=== PATIENT | male | born 1950 | race Caucasian/White ===

== ENCOUNTER 2017-11-22 15:52 | Inpatient (IN) | payer MEDICARE ==
[~2017-11-22] VITALS: Ht 188 cm; Wt 81.6 kg
--- NOTE | ~2017-11-22 | EC ---
PATIENT:ALDEN MARQUIS DATE OF SERVICE: 11/22/17 SEX: M MEDICAL RECORD: [id number] DATE OF : [birth year] LOCATION:D.[facility] [place] AGE OF PATIENT: 66 ADMISSION DATE: 11/22/17 REFERRING PHYSICIAN: INTERPRETING PHYSICIAN: JACE BEY MD ECHOCARDIOGRAM REPORT ECHO CHARGES 4 ECHO COMPLETE CLINICAL DIAGNOSIS: ASSESS EF/ LEFT KNEE INFECTION HX OF DM ECHOCARDIOGRAPHIC MEASUREMENTS (adult normal given) AC root (d.<3.7cm) 4.3 cm LV Septum d (<1.2 cm> 2.2 cm Valve Excursion 2.4 cm LV Septum (systole) 2.6 cm Left Atria (s.<4.0cm> 5.3 cm LVPW d(<1.2cm) 2.3 cm RV (d.<2.3cm) 3.7 cm LVPW (sytole) 2.8 cm LV diastole(<5.6CM) 5.0 cm MV E-F(>70mm/sec) cm LV systole 2.8 cm LVOT Diameter 2.3 cm MV exc.(>10mm) 2.1 cm Est.ejection fraction (50-75%) % Pericardial Effusion Y DOPPLER: LVIT cm/sec A 79.0 cm/sec E 91.0 cm/sec LA cm/sec RVSP 21 mmHg LVOT 112 cm/sec AOP1/2T 501 m/s Asc. Ao 158 cm/sec RVOT 95 cm/sec RA cm/sec PA 125 cm/sec AV Gradient Peak 9.95 mmHg AV Mean 4.87 mmHg AV Area 2.1 cm MV Gradient Peak 4.30 mmHg MV Mean 2.21 mmHg MV Area cm COMMENTS: Racing Secretary: Virgen STRICKLAND Ribbon Inker: 1 Dr. Bey TAPE# PACS DATE OF SERVICE: 11/24/2017 FINDINGS: 1. Left ventricle chamber size is within normal limits. Left ventricular systolic function is normal. Overall ejection fraction is estimated at 55%. 2. Left atrium is enlarged at 5.3 cm. Right atrium and right ventricle chamber sizes are as well mildly dilated. 3. Left ventricular hypertrophy is present, concentric, with no evidence of outflow tract hypertrophy, but there is reversal of the mitral inflow pattern, suggestive of diastolic dysfunction from this degree of left ventricular ECHOCARDIOGRAM REPORT [id number] KANDIS,ALDEN A hypertrophy. 4. Valvular structures have normal structure and motion. 5. Doppler interrogation reveals mild aortic insufficiency, mild mitral regurgitation, mild tricuspid regurgitation. No other valvular insufficiency or stenosis. Pulmonary systolic pressure is normal, estimated at 21 mmHg. 6. No evidence of pericardial effusion or left ventricular thrombus. TRANSINT:[id number] Voice Confirmation ID: [id number] DOCUMENT ID: [id number] JACE BEY MD at 1025 CC: [id number] DICTATION DATE: 11/25/17 1116 METAL SPRAYING MACHINE OPERATOR: 11/25/17 1346 ADM IN [facility] [address] [id number]
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
[~2017-11-22 15:52] MED LIST: CINNAMON500 MG PO; GABAPENTIN100 MG PO; GLUCOPHAGE1000 MG PO; HUMULIN N100 U/ML; HUMULIN R100 U/ML SC; LANTUS SOL100 UNIT/1 SC; LIPITOR40 MG PO; LISINOPRIL2.5 MG PO; MULTI-DAY VITAM1 TAB; VITAMIN C1000 MG PO
[2017-11-22 16:51] LABS: BASOPHILS 0.1 % (0-2); EOSINOPHILS 0.7 % (0-7); HEMATOCRIT 27.7 % (42.0-54.0); HEMOGLOBIN 8.8 g/dL (13.5-17.5); IMMATURE GRANULOCYTES 1.6 % (0-5); LYMPHOCYTES 6.2 % (15-50); MCH 26.4 pg (26.0-34.0); MCHC 31.8 g/dL (31.0-37.0); MCV 83.2 fL (80.0-100.0); MEAN PLATELET VOLUME 8.4 fL (7.4-10.4); MONOCYTES 4.7 % (2-11); NEUTROPHILS 86.7 % (40-80); RBC 3.33 10x6/uL (4.20-6.10); RDW 13.9 % (11.5-14.5); WBC 15.8 10x3/uL (4.8-10.8)
[2017-11-22 16:52] LABS: PLATELET COUNT 487 10x3/uL (130-400)
[2017-11-22 17:21] LABS: ALBUMIN 1.1 g/dL (3.4-5.0); BILIRUBIN - TOTAL 0.3 mg/dL (0.2-1.3); CARBON DIOXIDE 21.4 mmol/L (21.0-32.0); CREATININE - SERUM 1.3 mg/dL (0.6-1.3); POTASSIUM - SERUM 4.4 mmol/L (3.5-5.1)
[2017-11-22] MEDS ORDERED: NEURONTIN600 MG PO (22:39)
[2017-11-22] MEDS ORDERED: TOUJEO SOL300 UNIT/1 SC (22:41)
[2017-11-22 23:00] VITALS: BP 164/91; BMI 23.1
[2017-11-23] VITALS: BP 136/77
[2017-11-23 04:00] VITALS: BP 129/74
[2017-11-23 07:54] VITALS: BP 131/74
[2017-11-23 12:05] VITALS: BP 142/75
[2017-11-23 12:15] VITALS: BMI 23.1
[2017-11-23 19:23] VITALS: BP 110/68
[2017-11-23 21:04] LABS: % SATURATION 28 % (15-55); IRON 35 ug/dl (35-150); TOTAL IRON BIND CAPACITY 125 ug/dl (260-445); UNSAT IRON BIND CAPACITY 90 ug/dl (150-375)
[2017-11-24 05:16] LABS: BASOPHILS 0.1 % (0-2); EOSINOPHILS 1.7 % (0-7); HEMATOCRIT 24.2 % (42.0-54.0); HEMOGLOBIN 7.6 g/dL (13.5-17.5); IMMATURE GRANULOCYTES 1.2 % (0-5); LYMPHOCYTES 8.5 % (15-50); MCH 26.4 pg (26.0-34.0); MCHC 31.4 g/dL (31.0-37.0); MEAN PLATELET VOLUME 8.5 fL (7.4-10.4); MONOCYTES 4.8 % (2-11); NEUTROPHILS 83.7 % (40-80); PLATELET COUNT 440 10x3/uL (130-400); RBC 2.88 10x6/uL (4.20-6.10); RDW 13.9 % (11.5-14.5); WBC 14.9 10x3/uL (4.8-10.8)
[2017-11-24 05:35] LABS: CALCIUM 7.8 mg/dL (8.5-10.1); CARBON DIOXIDE 26.5 mmol/L (21.0-32.0); CREATININE - SERUM 1.2 mg/dL (0.6-1.3)
[2017-11-24 05:36] LABS: POTASSIUM - SERUM 3.5 mmol/L (3.5-5.1)
[2017-11-24 05:56] LABS: HEMOGLOBIN A1C > 16 % (4.8-6.0); MEAN PLASMA GLUCOSE 413 MG/DL (74-154)
[2017-11-24 08:16] VITALS: BP 111/60
[2017-11-24 12:22] VITALS: BP 132/62
[2017-11-24 16:13] VITALS: BP 105/64
[2017-11-24 20:00] VITALS: BP 118/64
[2017-11-24 23:53] VITALS: BP 123/67
[2017-11-25 04:00] VITALS: BP 115/65
[2017-11-25 05:41] LABS: BASOPHILS 0.1 % (0-2); EOSINOPHILS 2.2 % (0-7); IMMATURE GRANULOCYTES 0.6 % (0-5); LYMPHOCYTES 9.5 % (15-50); MCH 26.1 pg (26.0-34.0); MCHC 31.6 g/dL (31.0-37.0); MCV 82.4 fL (80.0-100.0); MEAN PLATELET VOLUME 8.3 fL (7.4-10.4); MONOCYTES 5.6 % (2-11); RBC 2.38 10x6/uL (4.20-6.10); RDW 14.3 % (11.5-14.5); WBC 11.3 10x3/uL (4.8-10.8)
[2017-11-25 05:42] LABS: HEMATOCRIT 19.6 % (42.0-54.0); HEMOGLOBIN 6.2 g/dL (13.5-17.5); PLATELET COUNT 347 10x3/uL (130-400)
[2017-11-25 05:46] LABS: ANION GAP 10.2 mmol/L (8-16); CALCIUM 7.4 mg/dL (8.5-10.1); CARBON DIOXIDE 24.8 mmol/L (21.0-32.0); CREATININE - SERUM 1.5 mg/dL (0.6-1.3)
[2017-11-25 08:18] VITALS: BP 127/78
[2017-11-25 12:18] VITALS: BP 121/58
[2017-11-25 15:29] VITALS: BP 105/61
[2017-11-25 21:31] VITALS: BP 106/64
[2017-11-26 01:38] VITALS: BP 106/59
[2017-11-26 05:05] LABS: BASOPHILS 0.1 % (0-2); EOSINOPHILS 2.3 % (0-7); IMMATURE GRANULOCYTES 0.6 % (0-5); LYMPHOCYTES 10.2 % (15-50); MCH 26.1 pg (26.0-34.0); MCHC 31.6 g/dL (31.0-37.0); MCV 82.7 fL (80.0-100.0); MEAN PLATELET VOLUME 8.5 fL (7.4-10.4); MONOCYTES 7.9 % (2-11); NEUTROPHILS 78.9 % (40-80); PLATELET COUNT 315 10x3/uL (130-400); RBC 2.26 10x6/uL (4.20-6.10); RDW 14.5 % (11.5-14.5); WBC 9.9 10x3/uL (4.8-10.8)
[2017-11-26 05:15] LABS: HEMATOCRIT 18.7 % (42.0-54.0); HEMOGLOBIN 5.9 g/dL (13.5-17.5)
[2017-11-26 05:19] LABS: CALCIUM 7.2 mg/dL (8.5-10.1); CARBON DIOXIDE 24.1 mmol/L (21.0-32.0); CREATININE - SERUM 1.6 mg/dL (0.6-1.3); POTASSIUM - SERUM 4.1 mmol/L (3.5-5.1)
[2017-11-26 07:46] VITALS: BP 118/69
[2017-11-26 08:05] VITALS: BP 116/68
[2017-11-26 11:13] LABS: FOLATE (FOLIC ACID) - SERUM 6.8 ng/mL (>3.0)
[2017-11-26 12:10] VITALS: BP 127/70
[2017-11-26 13:51] VITALS: BMI 23.1
[2017-11-26 16:17] VITALS: BP 141/76
[2017-11-26 22:34] VITALS: BP 157/87
[2017-11-27 04:48] VITALS: BP 144/80
[2017-11-27 05:47] LABS: BASOPHILS 0.1 % (0-2); EOSINOPHILS 2.2 % (0-7); HEMATOCRIT 20.1 % (42.0-54.0); IMMATURE GRANULOCYTES 0.5 % (0-5); LYMPHOCYTES 8.2 % (15-50); MCH 26.4 pg (26.0-34.0); MCHC 31.3 g/dL (31.0-37.0); MCV 84.1 fL (80.0-100.0); MEAN PLATELET VOLUME 8.5 fL (7.4-10.4); MONOCYTES 7.8 % (2-11); NEUTROPHILS 81.2 % (40-80); PLATELET COUNT 355 10x3/uL (130-400); RBC 2.39 10x6/uL (4.20-6.10); RDW 14.5 % (11.5-14.5); WBC 10.3 10x3/uL (4.8-10.8)
[2017-11-27 06:04] LABS: HEMOGLOBIN A1C 15.4 % (4.8-6.0)
[2017-11-27 06:11] LABS: CALCIUM 7.6 mg/dL (8.5-10.1); CARBON DIOXIDE 25.1 mmol/L (21.0-32.0); CREATININE - SERUM 1.6 mg/dL (0.6-1.3); POTASSIUM - SERUM 4.1 mmol/L (3.5-5.1); VANCOMYCIN - RANDOM 19.2 ug/mL (10.0-20.0)
[2017-11-27 06:54] LABS: HEMOGLOBIN 6.3 g/dL (13.5-17.5)
[2017-11-27 08:43] VITALS: BP 148/81
[2017-11-27 12:45] VITALS: BP 154/87
[2017-11-27 19:33] LABS: % SATURATION 8 % (15-55); IRON 9 ug/dl (35-150); TOTAL IRON BIND CAPACITY 105 ug/dl (260-445); UNSAT IRON BIND CAPACITY 96 ug/dl (150-375)
[2017-11-27 21:30] VITALS: BP 128/72
[2017-11-28 01:13] VITALS: BP 135/72
[2017-11-28 05:25] VITALS: BP 133/76
[2017-11-28 05:28] LABS: BASOPHILS 0.2 % (0-2); EOSINOPHILS 2.5 % (0-7); HEMATOCRIT 20.6 % (42.0-54.0); IMMATURE GRANULOCYTES 0.6 % (0-5); LYMPHOCYTES 10.2 % (15-50); MCH 26.2 pg (26.0-34.0); MCHC 31.1 g/dL (31.0-37.0); MCV 84.4 fL (80.0-100.0); MEAN PLATELET VOLUME 8.4 fL (7.4-10.4); NEUTROPHILS 76.5 % (40-80); PLATELET COUNT 385 10x3/uL (130-400); RBC 2.44 10x6/uL (4.20-6.10); RDW 14.6 % (11.5-14.5)
[2017-11-28 05:46] LABS: ANION GAP 11.1 mmol/L (8-16); CALCIUM 7.6 mg/dL (8.5-10.1); CARBON DIOXIDE 25.7 mmol/L (21.0-32.0); CREATININE - SERUM 1.5 mg/dL (0.6-1.3); POTASSIUM - SERUM 3.8 mmol/L (3.5-5.1)
[2017-11-28 06:07] LABS: HEMOGLOBIN 6.4 g/dL (13.5-17.5)
[2017-11-28 07:58] VITALS: BP 150/82
[2017-11-28 09:50] LABS: INR 1.2 (0.85-1.17); PROTIME 14.8 SECONDS (11.6-15.0)
[2017-11-28 09:51] LABS: APTT 51.9 SECONDS (22.8-39.4)
[2017-11-28 09:54] LABS: BILIRUBIN - DIRECT 0.03 mg/dL (0.00-0.30)
[2017-11-28 12:26] VITALS: BP 151/86
[2017-11-28 15:56] VITALS: BP 147/82
[2017-11-28 17:55] VITALS: Ht 188 cm; Wt 81.6 kg
[2017-11-29] VITALS (7 sets, daily range): BP systolic 139–163; BP diastolic 76–91
[2017-11-29 04:46] LABS: BASOPHILS 0.2 % (0-2); EOSINOPHILS 2.9 % (0-7); IMMATURE GRANULOCYTES 0.5 % (0-5); MCH 26.5 pg (26.0-34.0); MCHC 31.3 g/dL (31.0-37.0); MCV 84.6 fL (80.0-100.0); MEAN PLATELET VOLUME 8.2 fL (7.4-10.4); MONOCYTES 8.7 % (2-11); NEUTROPHILS 76.7 % (40-80); PLATELET COUNT 392 10x3/uL (130-400); RBC 2.34 10x6/uL (4.20-6.10); RDW 14.6 % (11.5-14.5); WBC 9.6 10x3/uL (4.8-10.8)
[2017-11-29 05:01] LABS: HEMATOCRIT 19.8 % (42.0-54.0); HEMOGLOBIN 6.2 g/dL (13.5-17.5)
[2017-11-29 05:07] LABS: ALBUMIN 0.9 g/dL (3.4-5.0); ANION GAP 10.7 mmol/L (8-16); BILIRUBIN - TOTAL 0.1 mg/dL (0.2-1.3); CALCIUM 7.2 mg/dL (8.5-10.1); CARBON DIOXIDE 26.1 mmol/L (21.0-32.0); CREATININE - SERUM 1.4 mg/dL (0.6-1.3); POTASSIUM - SERUM 3.8 mmol/L (3.5-5.1); PROTEIN - SERUM 5.1 g/dL (6.4-8.2); VANCOMYCIN - RANDOM 10.3 ug/mL (10.0-20.0)
[2017-11-29 08:21] LABS: FOLATE (FOLIC ACID) - SERUM 5.7 ng/mL (>3.0)
[2017-11-29 17:36] LABS: CREATININE - URINE 72.9 mg/dL (30-125)
[2017-11-29 17:41] LABS: CREATININE - URINE 75.2 mg/dL (30-125); PROTEIN - URINE 246.4 mg/dL (0.0-11.9)
[2017-11-30 01:30] VITALS: BP 172/92
[2017-11-30 04:47] LABS: BASOPHILS 0.2 % (0-2); EOSINOPHILS 3.4 % (0-7); HEMATOCRIT 20.7 % (42.0-54.0); IMMATURE GRANULOCYTES 0.7 % (0-5); MCH 26.4 pg (26.0-34.0); MCHC 30.9 g/dL (31.0-37.0); MCV 85.5 fL (80.0-100.0); MEAN PLATELET VOLUME 8.3 fL (7.4-10.4); MONOCYTES 10.8 % (2-11); NEUTROPHILS 71.9 % (40-80); PLATELET COUNT 424 10x3/uL (130-400); RBC 2.42 10x6/uL (4.20-6.10); RDW 14.8 % (11.5-14.5); WBC 8.5 10x3/uL (4.8-10.8)
[2017-11-30 04:53] LABS: HEMOGLOBIN 6.4 g/dL (13.5-17.5)
[2017-11-30 05:02] LABS: ALBUMIN 0.9 g/dL (3.4-5.0); BILIRUBIN - TOTAL 0.1 mg/dL (0.2-1.3); CALCIUM 7.2 mg/dL (8.5-10.1); CARBON DIOXIDE 26.7 mmol/L (21.0-32.0); CREATININE - SERUM 1.4 mg/dL (0.6-1.3); POTASSIUM - SERUM 3.7 mmol/L (3.5-5.1); PROTEIN - SERUM 5.3 g/dL (6.4-8.2); VANCOMYCIN - RANDOM 11.3 ug/mL (10.0-20.0)
[2017-11-30 05:21] VITALS: BP 142/82
[2017-11-30 05:27] LABS: ERYTHROCYTE SEDIMENTATION RATE 52 mm/hr (0-20)
[2017-11-30 08:07] VITALS: BP 149/89
[2017-11-30 12:17] VITALS: BP 122/77
[2017-11-30] MEDS ORDERED: BENADRYL INJ50 MG/ML IV (14:08)
[2017-11-30] MEDS ORDERED: Chloraseptic Spray [ TOPICAL (14:09)
[2017-11-30] MEDS ORDERED: DIFLUCAN100 MG PO (14:09)
[2017-11-30] MEDS ORDERED: FERREX 150 PLUS1 CAP PO (14:09)
[2017-11-30] MEDS ORDERED: LOVENOX30 MG/0.3 SC (14:09)
[2017-11-30] MEDS ORDERED: LOPERAMIDE HCL2 MG PO (14:10)
[2017-11-30] MEDS ORDERED: FLORAJEN3 CAPS460 MG PO (14:10)
[2017-11-30] MEDS ORDERED: GLUCAGEN1 MG/VIAL SC (14:10)
[2017-11-30] MEDS ORDERED: ONDANSETRON4 MG/2 M3 IV (14:10)
[2017-11-30] MEDS ORDERED: GLUCAGEN1 MG/VIAL IM (14:10)
[2017-11-30] MEDS ORDERED: HUMULIN R100 U/ML SC (14:11)
[2017-11-30] MEDS ORDERED: LANTUS INSULIN10 ML SC (14:11)
[2017-11-30] MEDS ORDERED: LEVAQUIN500 MG PO (14:12)
[2017-11-30] MEDS ORDERED: AMPICILLIN 2 GM/2 G1 IV (14:19)
[2017-11-30] MEDS ORDERED: CEFAZOLIN2 GM/50 ML IV (14:20)
[2017-11-30 14:23] LABS: AEROBE ID Final report (()); RESULT 1 Enterococcus avium (())
[2017-12-06 03:12] LABS: OVA + PARASITE EXAM Final report (())
== END 2017-11-30 16:08 | disposition short-term general hospital (02) | DRG 255 ==
LOC: D.ER 15:52 → D.MS 18:22
PROVIDERS: Family Medicine; Internal Medicine Hematology & Oncology; Internal Medicine Nephrology; Nurse Practitioner Family; Orthopaedic Surgery
PROC: 0Y6X0Z0 Detachment at Right 5th Toe, Complete, Open Approach (ICD-10-PCS; 2017-11-23)
PROC: 0H9JXZZ Drainage of Left Upper Leg Skin, External Approach (ICD-10-PCS; 2017-11-23)
PROC: 0HBMXZZ Excision of Right Foot Skin, External Approach (ICD-10-PCS; 2017-11-23)
PROC: 0SBD0ZZ Excision of Left Knee Joint, Open Approach (ICD-10-PCS; principal; 2017-11-23 14:00)
PROC: 0Y6V0Z0 Detachment at Right 4th Toe, Complete, Open Approach (ICD-10-PCS; 2017-11-23 14:00)
DX: E11.52 Type 2 diabetes mellitus with diabetic peripheral angiopathy with gangrene (principal); A48.0 Gas gangrene; L03.116 Cellulitis of left lower limb; M86.9 Osteomyelitis, unspecified; L02.416 Cutaneous abscess of left lower limb; E87.1 Hypo-osmolality and hyponatremia; N17.9 Acute kidney failure, unspecified; E11.65 Type 2 diabetes mellitus with hyperglycemia; E11.69 Type 2 diabetes mellitus with other specified complication; E11.40 Type 2 diabetes mellitus with diabetic neuropathy, unspecified; D50.8 Other iron deficiency anemias; B96.1 Klebsiella pneumoniae [K. pneumoniae] as the cause of diseases classified elsewhere; B95.1 Streptococcus, group B, as the cause of diseases classified elsewhere; B95.2 Enterococcus as the cause of diseases classified elsewhere; B95.61 Methicillin susceptible Staphylococcus aureus infection as the cause of diseases classified elsewhere; E88.09 Other disorders of plasma-protein metabolism, not elsewhere classified; T24.012A Burn of unspecified degree of left thigh, initial encounter; X16.XXXA Contact with hot heating appliances, radiators and pipes, initial encounter

== ENCOUNTER → 2018-01-17 12:17 | Outpatient (CLI) | payer MEDICARE ==
[2017-11-28 17:55] VITALS: BMI 23.1
[~2018-01-17 12:17] MED LIST changes: +AMPICILLIN 2 GM/2 G1 IV; +BENADRYL INJ50 MG/ML IV; +CEFAZOLIN2 GM/50 ML IV; +Chloraseptic Spray [ TOPICAL; +DIFLUCAN100 MG PO; +FERREX 150 PLUS1 CAP PO; +FLORAJEN3 CAPS460 MG PO; +GLUCAGEN1 MG/VIAL IM; +GLUCAGEN1 MG/VIAL SC; +LANTUS INSULIN10 ML SC; +LEVAQUIN500 MG PO; +LOPERAMIDE HCL2 MG PO; +LOVENOX30 MG/0.3 SC; +NEURONTIN600 MG PO; +ONDANSETRON4 MG/2 M3 IV; +TOUJEO SOL300 UNIT/1 SC
[2018-01-17 12:53] LABS: BASOPHILS 0.2 % (0-2); EOSINOPHILS 3.7 % (0-7); HEMATOCRIT 28.3 % (42.0-54.0); HEMOGLOBIN 8.6 g/dL (13.5-17.5); IMMATURE GRANULOCYTES 0.2 % (0-5); LYMPHOCYTES 13.9 % (15-50); MCH 23.6 pg (26.0-34.0); MCHC 30.4 g/dL (31.0-37.0); MCV 77.7 fL (80.0-100.0); MONOCYTES 7.9 % (2-11); NEUTROPHILS 74.1 % (40-80); RBC 3.64 10x6/uL (4.20-6.10); RDW 16.4 % (11.5-14.5); WBC 5.7 10x3/uL (4.8-10.8)
[2018-01-17 12:55] LABS: PLATELET COUNT 221 10x3/uL (130-400)
[2018-01-17 13:12] LABS: ANION GAP 12.6 mmol/L (8-16); BILIRUBIN - TOTAL 0.63 mg/dL (0.2-1.3); CALCIUM 8.2 mg/dL (8.5-10.1); CARBON DIOXIDE 26.2 mmol/L (21.0-32.0); CHOL - HDL RATIO 2.6 ratio (2.3-4.9); CREATININE - SERUM 1.2 mg/dL (0.6-1.3); LDL-HDL RATIO 1.3 ratio (1.5-3.5); POTASSIUM - SERUM 3.8 mmol/L (3.5-5.1); THYROID STIMULATING HORMONE 1.48 uIU/mL (0.36-3.74)
== END | disposition home or self-care (01) ==
LOC: D.LABREF 12:17
PROVIDERS: Family Medicine
DX: E11.9 Type 2 diabetes mellitus without complications (principal)

== ENCOUNTER → 2018-03-05 18:15 | Outpatient (CLI) | payer MEDICARE ==
[2017-11-28 17:55] VITALS: BMI 23.1
[2018-03-05 20:19] LABS: BASOPHILS 0.4 % (0-2); EOSINOPHILS 3.5 % (0-7); HEMATOCRIT 24.7 % (42.0-54.0); IMMATURE GRANULOCYTES 0.2 % (0-5); LYMPHOCYTES 9.3 % (15-50); MCHC 30.4 g/dL (31.0-37.0); MCV 79.2 fL (80.0-100.0); MEAN PLATELET VOLUME 8.6 fL (7.4-10.4); MONOCYTES 6.2 % (2-11); NEUTROPHILS 80.4 % (40-80); RBC 3.12 10x6/uL (4.20-6.10); RDW 19.1 % (11.5-14.5)
[2018-03-05 20:23] LABS: HEMOGLOBIN 7.5 g/dL (13.5-17.5); PLATELET COUNT 402 10x3/uL (130-400)
[2018-03-05 20:26] LABS: ANION GAP 11.7 mmol/L (8-16); CALCIUM 8.3 mg/dL (8.5-10.1); CARBON DIOXIDE 24.5 mmol/L (21.0-32.0); CREATININE - SERUM 1.5 mg/dL (0.6-1.3); POTASSIUM - SERUM 4.2 mmol/L (3.5-5.1)
== END | disposition home or self-care (01) ==
LOC: D.LABREF 18:15
PROVIDERS: Family Medicine
DX: D64.9 Anemia, unspecified (principal)

== ENCOUNTER → 2018-06-24 12:25 | Outpatient (CLI) | payer MEDICARE ==
[2017-11-28 17:55] VITALS: BMI 23.1
== END | disposition home or self-care (01) ==
LOC: D.RAD 12:25
DX: R05 Cough (principal); R09.89 Other specified symptoms and signs involving the circulatory and respiratory systems

== ENCOUNTER → 2018-06-28 17:46 | Outpatient (CLI) | payer MEDICARE ==
[2017-11-28 17:55] VITALS: BMI 23.1
[2018-06-28 18:42] LABS: BASOPHILS 0.2 % (0-2); EOSINOPHILS 5.1 % (0-7); HEMATOCRIT 26.6 % (42.0-54.0); HEMOGLOBIN 8.7 g/dL (13.5-17.5); IMMATURE GRANULOCYTES 0.2 % (0-5); LYMPHOCYTES 13.2 % (15-50); MCH 26.9 pg (26.0-34.0); MCHC 32.7 g/dL (31.0-37.0); MCV 82.4 fL (80.0-100.0); MEAN PLATELET VOLUME 9.3 fL (7.4-10.4); MONOCYTES 6.8 % (2-11); NEUTROPHILS 74.5 % (40-80); RBC 3.23 10x6/uL (4.20-6.10); RDW 15.3 % (11.5-14.5); WBC 6.5 10x3/uL (4.8-10.8)
[2018-06-28 18:43] LABS: PLATELET COUNT 244 10x3/uL (130-400)
[2018-06-28 19:31] LABS: ANION GAP 9.1 mmol/L (8-16); BILIRUBIN - TOTAL 0.51 mg/dL (0.2-1.3); CALCIUM 8.2 mg/dL (8.5-10.1); CARBON DIOXIDE 28.5 mmol/L (21.0-32.0); CREATININE - SERUM 1.8 mg/dL (0.6-1.3); POTASSIUM - SERUM 3.6 mmol/L (3.5-5.1); PROTEIN - SERUM 6.3 g/dL (6.4-8.2)
== END | disposition home or self-care (01) ==
LOC: D.LABREF 17:46
PROVIDERS: Family Medicine
DX: E11.9 Type 2 diabetes mellitus without complications (principal)

== ENCOUNTER → 2018-12-14 15:27 | Outpatient (CLI) | payer MEDICARE ==
[2017-11-28 17:55] VITALS: BMI 23.1
[~2018-12-14 15:27] MED LIST changes: +ASPIRIN325 MG PO; +CALMOSEPTINE OI71 GM TOPICAL; +LASIX40 MG PO; +LISINOPRIL10 MG PO; +NYSTATIN1 PWD TOPICAL; +OMNICEF300 MG PO; +SILVADENE20 GM TOPICAL
[2018-12-14 18:23] LABS: BASOPHILS 0.5 % (0-2); EOSINOPHILS 8.9 % (0-7); HEMATOCRIT 24.8 % (42.0-54.0); HEMOGLOBIN 7.7 g/dL (13.5-17.5); IMMATURE GRANULOCYTES 0.1 % (0-5); LYMPHOCYTES 11.2 % (15-50); MCH 26.2 pg (26.0-34.0); MCV 84.4 fL (80.0-100.0); MEAN PLATELET VOLUME 9.6 fL (7.4-10.4); MONOCYTES 7.9 % (2-11); NEUTROPHILS 71.4 % (40-80); PLATELET COUNT 387 10x3/uL (130-400); RBC 2.94 10x6/uL (4.20-6.10); RDW 15.9 % (11.5-14.5)
[2018-12-14 18:36] LABS: ALBUMIN 1.7 g/dL (3.4-5.0); ANION GAP 15.6 mmol/L (8-16); BILIRUBIN - TOTAL 0.26 mg/dL (0.2-1.3); CALCIUM 7.7 mg/dL (8.5-10.1); CARBON DIOXIDE 22.1 mmol/L (21.0-32.0); CREATININE - SERUM 1.9 mg/dL (0.6-1.3); POTASSIUM - SERUM 4.7 mmol/L (3.5-5.1); PROTEIN - SERUM 5.6 g/dL (6.4-8.2)
== END | disposition home or self-care (01) ==
LOC: D.LABREF 15:27
PROVIDERS: Family Medicine
DX: D64.9 Anemia, unspecified (principal); E11.9 Type 2 diabetes mellitus without complications

== ENCOUNTER 2018-12-19 17:08 | Inpatient (IN) | payer MEDICARE ==
[~2018-12-19] VITALS: Ht 188 cm; Wt 104.3 kg
[~2018-12-19 17:08] MED LIST changes: -ASPIRIN325 MG PO; -CALMOSEPTINE OI71 GM TOPICAL; -LASIX40 MG PO; -LISINOPRIL10 MG PO; -NYSTATIN1 PWD TOPICAL; -OMNICEF300 MG PO; -SILVADENE20 GM TOPICAL
[2018-12-19] MEDS ORDERED: ASPIRIN325 MG PO (17:15)
--- NOTE | 2018-12-19 17:26 | NUR ---
PT IS JAHOVAS WITNESS AND DOES NOT WANT BLOOD COMPONENTS/PRODUCTS. PT HAS HX OF CHRONIC ANEMIA. EDP NOTIFIED.
[2018-12-19 17:58] LABS: BASOPHILS 0.5 % (0-2); EOSINOPHILS 13.4 % (0-7); HEMATOCRIT 23.3 % (42.0-54.0); IMMATURE GRANULOCYTES 0.3 % (0-5); LYMPHOCYTES 14.8 % (15-50); MCH 26.8 pg (26.0-34.0); MCHC 32.2 g/dL (31.0-37.0); MCV 83.2 fL (80.0-100.0); MEAN PLATELET VOLUME 8.6 fL (7.4-10.4); MONOCYTES 7.6 % (2-11); NEUTROPHILS 63.4 % (40-80); RDW 16.1 % (11.5-14.5); WBC 7.5 10x3/uL (4.8-10.8)
[2018-12-19 18:04] LABS: HEMOGLOBIN 7.5 g/dL (13.5-17.5); PLATELET COUNT 305 10x3/uL (130-400)
--- NOTE | 2018-12-19 18:04 | NUR ---
NOTIFIED BY LAB OF CRITICAL HGB 7.5. TREATING PROVIDER NOTIFIED.
[2018-12-19 18:12] LABS: ALBUMIN 1.7 g/dL (3.4-5.0); ANION GAP 18.2 mmol/L (8-16); BILIRUBIN - TOTAL 0.28 mg/dL (0.2-1.3); CALCIUM 7.6 mg/dL (8.5-10.1); CARBON DIOXIDE 19.9 mmol/L (21.0-32.0); CREATININE - SERUM 1.9 mg/dL (0.6-1.3); POTASSIUM - SERUM 4.1 mmol/L (3.5-5.1); PROTEIN - SERUM 5.7 g/dL (6.4-8.2)
--- NOTE | 2018-12-19 19:02 | NUR ---
HAND-OFF REPORT GIVEN TO GIA RHODES AT THIS TIME.
--- NOTE | 2018-12-19 20:37 | NUR ---
PT'S IV ANTIBIOTIC ROCEPHIN FINISHED.
--- NOTE | 2018-12-19 23:00 | NUR ---
RECIEVED PT FROM ER VIA BED WITH HOSPITAL STAFF PRESENT. ALERT AND ORIENTED X4. RESPIRATIONS EVEN AND UNLABORED. VITAL SIGNS STABLE AND AFEBRILE. HGB 7.5 PER ED STAFF. STATED HE WAS JEHOVAS WITNESS. DENIES ANY OTHER NEEDS AT THIS TIME. BED LOW, SIDE RAILS UP X2. CALL LIGHT IN REACH. WILL CONTINUE TO MONITOR.
[2018-12-20] VITALS (7 sets, daily range): BP systolic 133–166; BP diastolic 54–88; Ht 188 cm; Wt 104.3 kg
[2018-12-20 04:54] LABS: BASOPHILS 0.5 % (0-2); EOSINOPHILS 14.1 % (0-7); HEMATOCRIT 21.2 % (42.0-54.0); IMMATURE GRANULOCYTES 0.2 % (0-5); LYMPHOCYTES 14.1 % (15-50); MCH 26.3 pg (26.0-34.0); MCHC 31.6 g/dL (31.0-37.0); MCV 83.1 fL (80.0-100.0); MEAN PLATELET VOLUME 8.6 fL (7.4-10.4); MONOCYTES 8.2 % (2-11); NEUTROPHILS 62.9 % (40-80); PLATELET COUNT 264 10x3/uL (130-400); RBC 2.55 10x6/uL (4.20-6.10); RDW 16.2 % (11.5-14.5); WBC 6.3 10x3/uL (4.8-10.8)
[2018-12-20 05:03] LABS: HEMOGLOBIN 6.7 g/dL (13.5-17.5)
[2018-12-20 05:14] LABS: ALBUMIN 1.4 g/dL (3.4-5.0); ANION GAP 13.6 mmol/L (8-16); BILIRUBIN - TOTAL 0.25 mg/dL (0.2-1.3); CALCIUM 7.5 mg/dL (8.5-10.1); CREATININE - SERUM 1.9 mg/dL (0.6-1.3); POTASSIUM - SERUM 3.6 mmol/L (3.5-5.1); PROTEIN - SERUM 5.3 g/dL (6.4-8.2)
--- NOTE | 2018-12-20 06:11 | NUR ---
CALLED FOR TELEMETRY PER MD ORDER. BODY SHOP SUPERVISOR SAID OUT OF MONITORS.
[2018-12-20 06:25] LABS: % SATURATION 11 % (15-55); IRON 17 ug/dl (35-150); TOTAL IRON BIND CAPACITY 146 ug/dl (260-445); UNSAT IRON BIND CAPACITY 129 ug/dl (150-375)
[2018-12-20 11:08] LABS: PATH REVIEW PERIPHERAL SMEAR REVIEWED
[2018-12-20 12:33] LABS: ERYTHROCYTE SEDIMENTATION RATE 50 mm/hr (0-20)
--- NOTE | 2018-12-20 19:00 | NUR ---
PT ALERT AND ORIENTED WHEN ENTERING THE ROOM. PT SITTING AT EDGE OF BED WHEN ENTERING THE ROOM. PT STATES BOTTOM HURTS. PT ENTIRE BACKSIDE RED AND INFLAMMED. SOME OPEN AREAS. CHANGED PT BEDDING. APPLIED BOUDREAUXS PT BOTTOM. PT IV SL TO THE RIGHT FOREARM. PT DOES NOT REPORT ANY OTHER COMPLAINTS EXCEPT FOR BOTTOM. PT TESTICLES EXTREMELY SWOLLEN. ELEVATED SCROTOM WITH SHEET. NO OTHER COMPLAINTS AT THIS TIME.
[2018-12-21] VITALS: BP 148/76
--- NOTE | 2018-12-21 03:56 | NUR ---
PT PULLED OUT IV WHILE TURNING. RESITED TO THE BACK OF RIGHT FOREARM. PT COMPLAINS OF THROAT IRRITATION. OFFERED POPSICLE. PT SATISFIED AT THIS TIME.
--- NOTE | 2018-12-21 04:00 | NUR ---
ASSESSED, PT IS AWAKE WATCHING TV, EATING A POPCICLE. EASY RESPIRATIONS AND NO DISTRESS NOTED.
--- NOTE | 2018-12-21 06:04 | NUR ---
IN AND OUT OF PATIENTS ROOM SEVERAL TIMES IN THE NIGHT. PT HAD SEVERAL BOWEL MOVEMENTS WHICH RESULTED IN COMPLETE LINEN CHANGES AND REAPPLYING BOUDREAUXS TO PATIENTS BOTTOM. PT STATED HE TAKES CARE OF BOTH OF HIS PARENTS BUT PT IS UNABLE TO GET UP AND AMBULATE TO BATHROOM BY HIMSELF. PT STATES THAT HE IS UNABLE TO WALK AT HOME AND STAYS IN THE CHAIR MOST OF THE TIME. MORE THAN LIKELY NEED TO SEE ABOUT HOMECARE FOR THIS PATIENT AT DISCHARGE. HE IS UNABLE TO CARE FOR HIMSELF AT THIS POINT AND ESPECIALLY CARING FOR OTHERS.
--- NOTE | 2018-12-21 07:52 | NUR ---
AWAKE AND AELRT. ORIENTED X3. NO C/O AT THIS TIME. LUNGS ARE CLEAR BIALTERALLY, NO COUGH NOTED. SKIN IS INTACT WITHOUT REDNESS EXCEPT RASH TO LOWER EXTREMETIES WITH SOME SCABBED AREAS NOTED AND REDNESS TO BUTTOCKS AND JAN AREA. WILL MONITOR. SL TO RIGHT FOREARM IS PATENT WITHOUT REDNESS AT INSERTION SITE. DENIES NEEDS AT THIS TIME.
[2018-12-21 08:11] LABS: BASOPHILS 0.5 % (0-2); EOSINOPHILS 6.5 % (0-7); HEMATOCRIT 21.2 % (42.0-54.0); IMMATURE GRANULOCYTES 0.4 % (0-5); LYMPHOCYTES 10.8 % (15-50); MCHC 31.1 g/dL (31.0-37.0); MCV 83.5 fL (80.0-100.0); MEAN PLATELET VOLUME 8.8 fL (7.4-10.4); MONOCYTES 8.7 % (2-11); NEUTROPHILS 73.1 % (40-80); PLATELET COUNT 287 10x3/uL (130-400); RBC 2.54 10x6/uL (4.20-6.10); RDW 16.2 % (11.5-14.5)
[2018-12-21 08:16] LABS: FOLATE (FOLIC ACID) - SERUM 8.9 ng/mL (>3.0)
[2018-12-21 08:26] LABS: WBC 7.9 10x3/uL (4.8-10.8)
[2018-12-21 08:28] LABS: HEMOGLOBIN 6.6 g/dL (13.5-17.5)
[2018-12-21 08:33] LABS: ALBUMIN 1.5 g/dL (3.4-5.0); ANION GAP 15.2 mmol/L (8-16); BILIRUBIN - TOTAL 0.28 mg/dL (0.2-1.3); CALCIUM 7.4 mg/dL (8.5-10.1); CARBON DIOXIDE 21.4 mmol/L (21.0-32.0); CHOL - HDL RATIO 1.6 ratio (2.3-4.9); LDL-HDL RATIO 0.5 ratio (1.5-3.5); MAGNESIUM - SERUM 1.7 mg/dL (1.8-2.4); PHOSPHOROUS 4.8 mg/dL (2.5-4.9); POTASSIUM - SERUM 3.6 mmol/L (3.5-5.1); PROTEIN - SERUM 5.5 g/dL (6.4-8.2)
--- NOTE | 2018-12-21 09:00 | NUR ---
ATE ALL OF BREAKFAST. TOOK AM MEDS WITHOUT DIFFICULTY. INCONTINENT OF LARGE AMOUNT OF LOOSE WATERY STOOL. SKIN CARE PER STAFF. SKIN TO BUTTOCKS VERY EXCORIATED. BUTT BALM APPLIED TO AREA. SCROTUM IS VERY EDEMATOUS.
--- NOTE | 2018-12-21 10:00 | NUR ---
INCONTINENT OF STOOL AGAIN. LOOSE AND WATERY, LIGHT BROWN. SKIN CARE AND LINENS CHANGED PER STAFF.
[2018-12-21 10:58] VITALS: BP 162/77
[2018-12-21 14:18] VITALS: BP 144/69
--- NOTE | 2018-12-21 17:00 | NUR ---
SPOKE WITH DR. RUIZ RE PAIN MEDS AND POSSIBLE YEAST ON SKIN. NEW ORDERS RECEIVED.
[2018-12-21 17:57] VITALS: BP 134/69
--- NOTE | 2018-12-21 18:51 | NUR ---
ATE ALL OF SUPPER. DENIES NEEDS. NO CHANGES NOTED.
[2018-12-21 19:00] VITALS: BP 155/80
--- NOTE | 2018-12-21 20:00 | NUR ---
ALERT RESTING IN BED RESP UNLABORED O2 IN USE, REPOSITIONED FOR COMFORT DENIES NEEDS AT THIS TIME CALL ANAND BURROUGHS
[2018-12-22] VITALS: BP 148/71
[2018-12-22 03:00] VITALS: BP 139/65
[2018-12-22 06:56] LABS: ALBUMIN 1.5 g/dL (3.4-5.0); ANION GAP 14.9 mmol/L (8-16); BILIRUBIN - TOTAL 0.22 mg/dL (0.2-1.3); CALCIUM 7.3 mg/dL (8.5-10.1); CARBON DIOXIDE 21.6 mmol/L (21.0-32.0); CREATININE - SERUM 2.2 mg/dL (0.6-1.3); POTASSIUM - SERUM 3.5 mmol/L (3.5-5.1); PROTEIN - SERUM 5.3 g/dL (6.4-8.2)
[2018-12-22 07:15] LABS: HEMATOCRIT 21.5 % (42.0-54.0); MCH 26.9 pg (26.0-34.0); MCHC 31.6 g/dL (31.0-37.0); MEAN PLATELET VOLUME 8.8 fL (7.4-10.4); NEUTROPHILS 76.5 % (40-80); PLATELET COUNT 291 10x3/uL (130-400); RBC 2.53 10x6/uL (4.20-6.10); RDW 16.4 % (11.5-14.5); WBC 9.1 10x3/uL (4.8-10.8)
[2018-12-22 07:39] LABS: HEMOGLOBIN 6.8 g/dL (13.5-17.5)
[2018-12-22 09:27] VITALS: BP 151/73
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
[2018-12-22 13:20] VITALS: BP 138/81
[2018-12-22 17:02] VITALS: BP 134/62
--- NOTE | 2018-12-22 18:52 | NUR ---
CCONTINUED SCROTAL EDEMA. DENIES HAVING ANY TROUBLE UNINATING WITH ABDOMEN SOFT ON PALPATION. LASIX GIVEN PER ORDERED FOR EDEMA. RESTING COMFORTABLY WITH EYES CLOSED RESPIRATIONS EVEN AND UNLABORED WITH IVF INFUSING AT PRESCRIBED RATE. ENCOURAGED TO USE CALL LIGHT FOR ASSIST.
[2018-12-22 19:00] VITALS: BP 117/57
--- NOTE | 2018-12-22 20:00 | NUR ---
AROUSED EASILY DENIES PAIN OR PROBLEMS AT THIS TIME RESP UNLABORED O2 IN USE VIA N/C, EDEMA NOTED TO SCROTUM AND LOWER EXTREMITIES, IV SALINE LOCKED LEFT FORARM SITE CLEAR, STEW WRAPS NOTED TO LOWER LEGS, SKIN EXCORIATED TO BUTTOCKS, REPORTS ABLE TO USE URINAL, CALL LIGHT IN REACH
[2018-12-23] VITALS: BP 120/56
[2018-12-23 03:00] VITALS: BP 121/56
[2018-12-23 07:59] LABS: ALBUMIN 1.6 g/dL (3.4-5.0); ANION GAP 18.5 mmol/L (8-16); BILIRUBIN - TOTAL 0.13 mg/dL (0.2-1.3); CALCIUM 7.7 mg/dL (8.5-10.1); CARBON DIOXIDE 18.4 mmol/L (21.0-32.0); CREATININE - SERUM 2.5 mg/dL (0.6-1.3); POTASSIUM - SERUM 3.9 mmol/L (3.5-5.1); PROTEIN - SERUM 5.5 g/dL (6.4-8.2)
[2018-12-23 08:21] VITALS: BP 141/69
[2018-12-23 08:27] LABS: BASOPHILS 0.1 % (0-2); EOSINOPHILS 2.3 % (0-7); HEMATOCRIT 22.1 % (42.0-54.0); IMMATURE GRANULOCYTES 0.4 % (0-5); LYMPHOCYTES 4.6 % (15-50); MCH 26.6 pg (26.0-34.0); MCHC 30.8 g/dL (31.0-37.0); MCV 86.3 fL (80.0-100.0); MEAN PLATELET VOLUME 9.4 fL (7.4-10.4); MONOCYTES 5.3 % (2-11); NEUTROPHILS 87.3 % (40-80); PLATELET COUNT 248 10x3/uL (130-400); RBC 2.56 10x6/uL (4.20-6.10); RDW 16.7 % (11.5-14.5)
[2018-12-23 08:29] LABS: HEMOGLOBIN 6.8 g/dL (13.5-17.5); WBC 13.7 10x3/uL (4.8-10.8)
--- NOTE | 2018-12-23 08:41 | NUR ---
PT IS RESTING IN BED WITH EYES CLOSED. RESPIRATIONS ARE EVEN AND UNLABORED. PT IS EASILY AROUSED WITH VERBAL STIMULATION. PT DENIES PRESENCE OF PAIN AT THIS TIME. PT WITH PALE COLORED SKIN. PT DENIES PRESENCE OF DYSPNEA, AND N/V AT THIS TIME. BED IS IN THE LOWEST POSITION. CALL LIGHT AND BEDSIDE TABLE ARE WITHIN REACH. WILL CONT TO MONITOR.
--- NOTE | 2018-12-23 11:46 | EC ---
PATIENT:ALDEN MARQUIS DATE OF SERVICE: 12/19/18 SEX: M MEDICAL RECORD: [id number] DATE OF : [birth year] LOCATION:D.[facility] [place] AGE OF PATIENT: 68 ADMISSION DATE: 12/19/18 REFERRING PHYSICIAN: INTERPRETING PHYSICIAN: JACE BEY MD ECHOCARDIOGRAM REPORT ECHO CHARGES 4 ECHO COMPLETE Date: 12/20/18 CLINICAL DIAGNOSIS: CHF, SOB, ELEVATED PROBNP, ENEMA ECHOCARDIOGRAPHIC MEASUREMENTS (adult normal given) AC root (d.<3.7cm) 3.6 cm LV Septum d (<1.2 cm> 1.2 cm Valve Excursion 1.8 cm LV Septum (systole) 1.9 cm Left Atria (s.<4.0cm> 4.6 cm LVPW d(<1.2cm) 1.5 cm RV (d.<2.3cm) 2.8 cm LVPW (sytole) 2.1 cm LV diastole(<5.6CM) 5.4 cm MV E-F(>70mm/sec) cm LV systole 3.1 cm LVOT Diameter 1.9 cm MV exc.(>10mm) cm Est.ejection fraction (50-75%) % DOPPLER: LVIT cm/sec A 60 cm/sec E 100 cm/sec LA cm/sec RVSP 34.0 mmHg LVOT 92 cm/sec AOP1/2T m/s Asc. Ao 140 cm/sec RVOT 39 cm/sec RA cm/sec PA 65 cm/sec AV Gradient Peak 7.9 mmHg AV Mean 4.4 mmHg AV Area 1.8 cm MV Gradient Peak 6.8 mmHg MV Mean 2.9 mmHg MV Area cm COMMENTS: Clam Picker: Fidencio MELENDEZ Chainman: 1 Dr. Bey TAPE# PACS Pericardial Effusion N DATE OF SERVICE: 12/20/2018 FINDINGS: 1. Left ventricular chamber size is within normal limits. Left ventricular systolic function is normal. Overall ejection fraction estimated at 55%. 2. Left atrium is enlarged at 4.6 cm. Right atrium and right ventricular chamber sizes are as well moderately dilated. 3. Valvular structures have normal structure and motion. 4. Doppler interrogation reveals moderate mitral regurgitation and mild tricuspid regurgitation. No other valvular insufficiency or stenosis. ECHOCARDIOGRAM REPORT [id number] ALDEN MARQUIS Pulmonary systolic pressure is estimated 34 mmHg. 5. No evidence of pericardial effusion or left ventricular thrombus. TRANSINT:[id number] Voice Confirmation ID: [id number] DOCUMENT ID: [id number] JACE BEY MD at 1146 CC: [id number] DICTATION DATE: 12/20/18 170 BEAUTY CULTURIST: 12/21/18 0051 ADM IN [facility] [address] [id number]
[2018-12-23 12:20] VITALS: BP 1581/74
--- NOTE | 2018-12-23 15:14 | NUR ---
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 Plantar aspect right foot (lateral) 7cm x 2.5cm x 0.2cm chronic open wound Right Great, #2 and #3 toes with scabs Right knee 3.5cm x 3cm x 0.2cm chronic open wound Right childs 1cm x 0.5cm scab Right thigh 3cm x 1cm scab Left lateral foot 3cm x 4.5cm chronic wound Left toes scabs Left knee 3cm x 2.5cm x 0.2cm chronic wound Left upper arm 4cm x 1cm chronic wound Buttocks, perineal area and back of upper thighs: blanchable redness, blotchy skin - (pt is on diflucan and has nystop powder for this). Recommend silvadene cream be applied to open wounds daily and add calmoseptine cream for incontinence protection. Wound care will continue monitoring.
[2018-12-23 16:00] VITALS: BP 139/78
--- NOTE | 2018-12-23 17:11 | MORECARE ---
CASE MANAGEMENT DISCHARGE SUMMARY PATIENT: ALDEN CASTREJON UNIT: [id number] ADM DATE: 12/19/18 AGE: 68 : 51 SEX: M ROOM/BED: D.2236 AUTHOR: CONSUELO MADISON PHYSICIAN: REFERRING PHYSICIAN: CONNER ARRIOLA MD DATE OF SERVICE: 12/23/18 Discharge Plan Patient Name: ALDEN CASTREJON [facility] [facility] 1950 Planned Disposition: Fci Facility Anticipated Discharge Date: Discharge Date: Expected LOS: Initial Reviewer: [email or web address] Initial Review Date: 12/23/2018 Generated: 12/23/18 6:11 pm DCPIA - Discharge Planning Initial Assessment Updated by [email or web address]: Katerin Philip on 12/23/18 5:11 pm * Is the patient Alert and Oriented? Yes * How many steps to enter\exit or inside your home? Ramp/0 * PCP Dr. Arriola * Pharmacy [facility] on [address] * Preadmission Environment Home with Family * ADLs Partial Dependent * Partial ADLs (Assistance needed) Ambulation * Equipment Cane Power Chair or Electric Scooter Rolling Walker * Other Equipment Electric wheelchair * List name and contact numbers for known caregivers / representatives who currently or will assist patient after discharge: Stella Diaz - mother - [phone] Gen Castrejon - brother - [phone] * Verbal permission to speak to the caregivers and representatives has been obtained from the patient. Yes * Community resources currently utilized Home Health * Please name any agencies selected above. Care 4 [facility] * Additional services required to return to the preadmission environment? Yes * Can the patient safely return to the preadmission environment? No * Has this patient been hospitalized within the prior 30 days at any hospital? No Patient Name: ALDEN CASTREJON Page [id number] at 1711 All edits/amendments must be made on the electronic document DICTATION DATE: 12/23/181710 SURGICAL ASST: PRASHANTH 12/23/181710 RPT#: [id number] DC DATE: STATUS: ADM IN [facility] [address] [id number] END OF REPORT
--- NOTE | 2018-12-23 17:19 | MORECARE ---
CASE MANAGEMENT DISCHARGE SUMMARY PATIENT: ALDEN CASTREJON UNIT: [id number] ADM DATE: 12/19/18 AGE: 68 : 51 SEX: M ROOM/BED: D.2236 AUTHOR: GRICELDA,DOC PHYSICIAN: REFERRING PHYSICIAN: CONNER ARRIOLA MD DATE OF SERVICE: 12/23/18 Discharge Plan Patient Name: ALDEN CASTREJON Facility: [facility]:[place] : 1950 Planned Disposition: Intermediate Facility Anticipated Discharge Date: Discharge Date: Expected LOS: Initial Reviewer: [email or web address] Initial Review Date: 12/23/2018 Generated: 12/23/18 6:19 pm Comments DCP- Discharge Planning Updated by [email or web address]: Katerin Philip on 12/23/18 4:[address] Patient Name: ALDEN CASTREJON Admission Status: ER Accout number: [id number] Admission Date: 12-19-2018 : 1950 Admission Diagnosis: Attending: CONNER ARRIOLA Current LOS: 4 Anticipated DC Date: Planned Disposition: Intermediate Facility Primary Insurance: MEDICARE A & B Discharge Planning Comments: CM met with patient to discuss discharge planning, he is alone in the room. States he lives with his 90 and 93 year old parents. States he ambulates with a walker or uses his electric wheelchair. States "lately, I have been unable to walk". States he would like a referral to [facility], states he has been there in the past. I notified Angie Gonzales with [facility] and clinical faxed. CM will continue to follow and assist with discharge planning/needs. Tanker Driver: Katerin Philip DCPIA - Discharge Planning Initial Assessment Updated by [email or web address]: Katerin Philip on 12/23/18 5:11 pm * Is the patient Alert and Oriented? Yes * How many steps to enter\\exit or inside your home? Ramp/0 * PCP Dr. Arriola * Pharm[facility] [address] * Preadmission Environment Home with Family * ADLs Partial Dependent * Partial ADLs (Assistance needed) Ambulation * Equipment Cane Power Chair or Electric Scooter Rolling Walker * Other Equipment Electric wheelchair * List name and contact numbers for known caregivers / representatives who currently or will assist patient after discharge: Stella Diaz - mother - [phone] Gen Castrejon - brother - [phone] * Verbal permission to speak to the caregivers and representatives has been obtained from the patient. Yes * Community resources currently utilized Home Health * Please name any agencies selected above. [facility] * Additional services required to return to the preadmission environment? Yes * Can the patient safely return to the preadmission environment? No * Has this patient been hospitalized within the prior 30 days at any hospital? No Last DP export: 12/23/18 4:11 p Patient Name: ALDEN CASTREJON Page [phone] at 1715 All edits/amendments must be made on the electronic document DICTATION DATE: 12/23/181718 CENTRAL AISLE CASHIER: PRASHANTH 12/23/181718 RPT#: [id number] DC DATE: STATUS: ADM IN [facility] [address] [place] [address] END OF REPORT
--- NOTE | 2018-12-23 17:27 | MORECARE ---
CASE MANAGEMENT DISCHARGE SUMMARY PATIENT: ALDEN CASTREJON UNIT: [id number] ADM DATE: 12/19/18 AGE: 68 : 51 SEX: M ROOM/BED: D.2236 AUTHOR: GRICELDA,DOC PHYSICIAN: REFERRING PHYSICIAN: CONNER ARRIOLA MD DATE OF SERVICE: 12/23/18 Discharge Plan Patient Name: ALDEN CASTREJON Facility: [facility]:[place] : 1950 Planned Disposition: Long-Term Facility Anticipated Discharge Date: Discharge Date: Expected LOS: Initial Reviewer: [email or web address] Initial Review Date: 12/23/2018 Generated: 12/23/18 6:27 pm Comments DCP- Discharge Planning Updated by [email or web address]: Katerin Philip on 12/23/18 4:[address] Patient Name: ALDEN CASTREJON Admission Status: ER Accout number: [id number] Admission Date: 12-19-2018 : 1950 Admission Diagnosis: Attending: CONNER ARRIOLA Current LOS: 4 Anticipated DC Date: Planned Disposition: Long-Term Facility Primary Insurance: MEDICARE A & B Discharge Planning Comments: CM met with patient to discuss discharge planning, he is alone in the room. States he lives with his 90 and 93 year old parents. States he ambulates with a walker or uses his electric wheelchair. States "lately, I have been unable to walk". States he would like a referral to [facility] SNF, states he has been there in the past. I notified Angie Gonzales with [facility] and clinical faxed. CM will continue to follow and assist with discharge planning/needs. Clinical Case Manager: Katerin Philip DCPIA - Discharge Planning Initial Assessment Updated by [email or web address]: Katerin Philip on 12/23/18 5:11 pm * Is the patient Alert and Oriented? Yes * How many steps to enter\\exit or inside your home? Ramp/0 * PCP Dr. Arriola * Pharmacy [facility] on [address] * Preadmission Environment Home with Family * ADLs Partial Dependent * Partial ADLs (Assistance needed) Ambulation * Equipment Cane Power Chair or Electric Scooter Rolling Walker * Other Equipment Electric wheelchair * List name and contact numbers for known caregivers / representatives who currently or will assist patient after discharge: Stella Diaz - mother - [phone] Gen Castrejon - brother - [phone] * Verbal permission to speak to the caregivers and representatives has been obtained from the patient. Yes * Community resources currently utilized Home Health * Please name any agencies selected above. [facility] * Additional services required to return to the preadmission environment? Yes * Can the patient safely return to the preadmission environment? No * Has this patient been hospitalized within the prior 30 days at any hospital? No External Providers External Provider: [facility] Next Contact Date: Service Request Date: Service Type: Resolution: Reviewer: Comments: Last DP export: 12/23/18 4:19 p Patient Name: ALDEN CASTREJON Page [phone] at 1727 All edits/amendments must be made on the electronic document DICTATION DATE: 12/23/181725 PROP MAKING SUPERVISOR: PRASHANTH 12/23/181725 RPT#: [id number] DC DATE: STATUS: ADM IN [facility] [address] [place] [address] END OF REPORT
[2018-12-23 20:00] VITALS: BP 123/65
--- NOTE | 2018-12-23 20:00 | NUR ---
THE PATIENT WAS WATCHING TELEVISION WHEN STAFF ENTERED HIS ROOM. BED IS IN THE LOW POSITION WITH SIDERAILS X2 AND CALL LIGHT WITHIN REACH. THE PATIENT DEMONSTRATES APPROPRIATE USE OF A CALL LIGHT. THE PATIENT APPEARS COMFORTABLE WITH NO QUESTIONS OR CONCERNS AT THIS TIME.
[2018-12-24] VITALS: BP 138/65
--- NOTE | 2018-12-24 02:56 | NUR ---
THE PATIENT APPEARS TO BE SLEEPING COMFORTABLY. BED IN THE LOW POSITION WITH SIDERAILS X2 AND CALL LIGHT WITHIN REACH.
[2018-12-24 05:19] VITALS: BP 150/73
--- NOTE | 2018-12-24 08:03 | NUR ---
PT LAYING IN RESTING. DENIES PAIN AT THIS TIME. BREATHING EVEN AND UNLABORED. STEW WRAP TO BLE. A/O X 4. BEDBOUND. YELLOW GOWN ON. R FOREARM IV WITH NS @ KVO. RM AIR. URINAL AT BEDSIDE. EXCORIATION TO BUTTOCKS. NO FURTHER CONCERNS AT THIS TIME. BED LOWERED AND LOCKED. CL IN REACH. WILL CONTINUE TO MONITIOR.
[2018-12-24 08:27] VITALS: BP 153/68
[2018-12-24 08:33] LABS: BASOPHILS 0.2 % (0-2); EOSINOPHILS 7.5 % (0-7); HEMATOCRIT 21.7 % (42.0-54.0); IMMATURE GRANULOCYTES 1.5 % (0-5); LYMPHOCYTES 10.4 % (15-50); MCH 26.6 pg (26.0-34.0); MCHC 30.9 g/dL (31.0-37.0); MCV 86.1 fL (80.0-100.0); MEAN PLATELET VOLUME 9.1 fL (7.4-10.4); MONOCYTES 8.4 % (2-11); PLATELET COUNT 249 10x3/uL (130-400); RBC 2.52 10x6/uL (4.20-6.10); RDW 16.5 % (11.5-14.5)
[2018-12-24 08:34] LABS: WBC 8.7 10x3/uL (4.8-10.8)
[2018-12-24 08:35] LABS: HEMOGLOBIN 6.7 g/dL (13.5-17.5)
--- NOTE | 2018-12-24 08:44 | NUR ---
DR. RUIZ NOTIFED OF PT HGB OF 6.7. NO ORDERS GIVEN
[2018-12-24 08:47] LABS: ALBUMIN 1.5 g/dL (3.4-5.0); ANION GAP 13.5 mmol/L (8-16); BILIRUBIN - TOTAL 0.12 mg/dL (0.2-1.3); CALCIUM 7.4 mg/dL (8.5-10.1); CARBON DIOXIDE 22.2 mmol/L (21.0-32.0); CREATININE - SERUM 2.7 mg/dL (0.6-1.3); POTASSIUM - SERUM 3.7 mmol/L (3.5-5.1); PROTEIN - SERUM 5.5 g/dL (6.4-8.2)
--- NOTE | 2018-12-24 09:00 | NUR ---
PT TOOK MORINING MEDS WITHOUT DIFFICULTY. CREAM APPLIED TO PT BACK WHERE PT STATES HE IS HURTING MID BACK, NO EXCORIATION NOTED.
--- NOTE | 2018-12-24 10:49 | NUR ---
PT INCONTINENT OF BOWEL. PT CLEANED UP. NEW LINENS APPLIED. NO FUTHER CONCERNS AT THIS TIME. WILL CONTINUE TO MONITOR. BED LOWERED AND LOCKED. CL IN REACH. WILL CONTINUE TO MONTIOR.
[2018-12-24 12:04] VITALS: BP 181/90
--- NOTE | 2018-12-24 13:16 | NUR ---
NUTRITION F/U PT WITH VISITOR IN ROOM. EATING LUNCH. 100% INTAKE RECENT MEALS. REMAINS AT LOW NUTRITIONAL RISK. RD FOLLOWING
--- NOTE | 2018-12-24 13:23 | MORECARE ---
CASE MANAGEMENT DISCHARGE SUMMARY PATIENT: ALDEN CASTREJON UNIT: [id number] ADM DATE: 12/19/18 AGE: 68 : 51 SEX: M ROOM/BED: D.2236 AUTHOR: GRICELDA,DOC PHYSICIAN: REFERRING PHYSICIAN: CONNER ARRIOLA MD DATE OF SERVICE: 12/24/18 Discharge Plan Patient Name: ALDEN CASTREJON Facility: [facility]:[place] : 1950 Planned Disposition: [facility] Facility Anticipated Discharge Date: Discharge Date: Expected LOS: Initial Reviewer: [email or web address] Initial Review Date: 12/23/2018 Generated: 12/24/18 2:23 pm Comments DCP- Discharge Planning Updated by [email or web address]: Katerin Mejiaaltagracia on 12/24/18 12:[address] I spoke with Angie Gonzales again about referral to [facility]. She states he only has one day of skilled days left at 100% paid. She states they may be able to take him for therapy if he is willing to stay at least 30 days and apply for skilled nursing. I spoke with the patient and also talked to him about LTACH for wound care. He states he has been at LTACH before and would prefer to go to [facility] for therapy and would be willing to stay at least 30 days for this. I informed Angie Gonzales. CM will continue to follow and assist with discharge planning/needs. DCP- Discharge Planning Updated by [email or web address]: Katerin Philip on 12/23/18 4:[address] Patient Name: ALDEN CASTREJON Admission Status: ER Accout number: [id number] Admission Date: 12-19-2018 : 1950 Admission Diagnosis: Attending: CONNER ARRIOLA Current LOS: 4 Anticipated DC Date: Planned Disposition: [facility] Facility Primary Insurance: MEDICARE A & B Discharge Planning Comments: CM met with patient to discuss discharge planning, he is alone in the room. States he lives with his 90 and 93 year old parents. States he ambulates with a walker or uses his electric wheelchair. States "lately, I have been unable to walk". States he would like a referral to [facility] SNF, states he has been there in the past. I notified Angie Gonzales with [facility] and clinical faxed. CM will continue to follow and assist with discharge planning/needs. Wrapper And Preserver: Katerin Tamera DCPIA - Discharge Planning Initial Assessment Updated by [email or web address]: Katerin Philip on 12/23/18 5:11 pm * Is the patient Alert and Oriented? Yes * How many steps to enter\\exit or inside your home? Ramp/0 * PCP Dr. Arriola * Pharmacy [facility] on [address] * Preadmission Environment Home with Family * ADLs Partial Dependent * Partial ADLs (Assistance needed) Ambulation * Equipment Cane Power Chair or Electric Scooter Rolling Walker * Other Equipment Electric wheelchair * List name and contact numbers for known caregivers / representatives who currently or will assist patient after discharge: Stella Diaz - mother - [phone] Gen Castrejon - brother - [phone] * Verbal permission to speak to the caregivers and representatives has been obtained from the patient. Yes * Community resources currently utilized Home Health * Please name any agencies selected above. [facility] * Additional services required to return to the preadmission environment? Yes * Can the patient safely return to the preadmission environment? No * Has this patient been hospitalized within the prior 30 days at any hospital? No Last DP export: 12/23/18 4:27 p Patient Name: ALDEN CASTREJON Page [id number] at 1323 All edits/amendments must be made on the electronic document DICTATION DATE: 12/24/18 132 MOLD PRESSER: PRASHANTH 12/24/18 1323 RPT#: [id number] DC DATE: STATUS: ADM IN [facility] [address] [place] [address] END OF REPORT
[2018-12-24 15:07] VITALS: BP 167/82
--- NOTE | 2018-12-24 15:14 | MORECARE ---
CASE MANAGEMENT DISCHARGE SUMMARY PATIENT: ALDEN CASTREJON UNIT: [id number] ADM DATE: 12/19/18 AGE: 68 : 51 SEX: M ROOM/BED: D.2236 AUTHOR: GRICELDA,DOC PHYSICIAN: REFERRING PHYSICIAN: CONNER ARRIOLA MD DATE OF SERVICE: 12/24/18 Discharge Plan Patient Name: ALDEN CASTREJON Facility: [facility]:[place] : 1950 Planned Disposition: Group Home Facility Anticipated Discharge Date: Discharge Date: Expected LOS: Initial Reviewer: [email or web address] Initial Review Date: 12/23/2018 Generated: 12/24/18 4:14 pm Comments DCP- Discharge Planning Updated by [email or web address]: Katerin Philip on 12/24/18 2:[address] I spoke with patient about inpatient rehab, he is willing to participate in 3 hours of therapy a day. States he would like a referral sent to inpatient rehab, screen ordered. I spoke with José in inpatient rehab, she will notify Misha to work with the patient again today. CM will continue to follow and assist with discharge planning/needs. DCP- Discharge Planning Updated by [id number]: Katerin Philip on 12/24/18 12:[address] I spoke with Angie Gonzales again about referral to [facility]. She states he only has one day of skilled days left at 100% paid. She states they may be able to take him for therapy if he is willing to stay at least 30 days and apply for intermodal customer service. I spoke with the patient and also talked to him about LTACH for wound care. He states [facility] and would prefer to go to [facility] for therapy and would be willing to stay at least 30 days for this. I informed Angie Gonzales. CM will continue to follow and assist with discharge planning/needs. DCP- Discharge Planning Updated by [id number]: Katerin Philip on 12/23/18 4:[address] Patient Name: ALDEN CASTREJON Admission Status: ER Accout number: [id number] Admission Date: 12-19-2018 : 1950 Admission Diagnosis: Attending: CONNER ARRIOLA Current LOS: 4 Anticipated DC Date: Planned Disposition: Group Home Facility Primary Insurance: MEDICARE A & B Discharge Planning Comments: CM met with patient to discuss discharge planning, he is alone in the room. States he lives with his 90 and 93 year old parents. States he ambulates with a walker or uses his electric wheelchair. States "lately, I have been unable to walk". States he would like a referral to [facility], states he has been there in the past. I notified Angie Gonzales with [facility] and clinical faxed. CM will continue to follow and assist with discharge planning/needs. Compressed Air Pile Driver Operator: Katerin Philip DCPIA - Discharge Planning Initial Assessment Updated by [email or web address]: Katerin Philip on 12/23/18 5:11 pm * Is the patient Alert and Oriented? Yes * How many steps to enter\\exit or inside your home? Ramp/0 * PCP Dr. Arriola * Pharmacy [facility] on [address] * Preadmission Environment Home with Family * ADLs Partial Dependent * Partial ADLs (Assistance needed) Ambulation * Equipment Cane Power Chair or Electric Scooter Rolling Walker * Other Equipment Electric wheelchair * List name and contact numbers for known caregivers / representatives who currently or will assist patient after discharge: Stella Diaz - mother - [phone] Gen Castrejon - brother - [phone] * Verbal permission to speak to the caregivers and representatives has been obtained from the patient. Yes * Community resources currently utilized Home Health * Please name any agencies selected above. Care [address] [facility] * Additional services required to return to the preadmission environment? Yes * Can the patient safely return to the preadmission environment? No * Has this patient been hospitalized within the prior 30 days at any hospital? No Last DP export: 12/24/18 12:23 p Patient Name: ALDEN CASTREJON Page [id number] at 1514 All edits/amendments must be made on the electronic document DICTATION DATE: 12/24/181512 MAKEUP SALES ADVISOR: PRASHANTH 12/24/181512 RPT#: [id number] DC DATE: STATUS: ADM IN [facility] [address] [place] [address] END OF REPORT
--- NOTE | 2018-12-24 15:32 | NUR ---
Rehab Note- Acute Inpatient REhab prescreen order received. Visted with the patient, states he is in agreeance and is willing to participate in the required therapy. SPoke with MANJIT Conklin. Will follow at this time and plan to accept to [facility] Acute Inpatient Rehab when medically stable and ready for discharge from the acute hospital. Thank you for this referral! Talia Hall RN Clinical Liaison, [facility] Rehab
--- NOTE | 2018-12-24 15:40 | NUR ---
PT SITTING UP IN BED READING. BS 166. DENIES PAIN AT THIS TIME. BED LOWERED AND LOCKED. CL IN REACH. WILL CONTINUE TO MONITOR.
--- NOTE | 2018-12-24 16:33 | NUR ---
PATIENT RESTING WITH NO NEEDS VOICED, COVERED WITH 2 UNITS OF S/S INSULIN, CL INREACH
--- NOTE | 2018-12-24 19:55 | NUR ---
PT RESTING IN BED. ALERT AND ORIENTED. NO SIGNS OF DISTRESS. BREATHING EVEN AND UNLABORED. PT STATES NO PROBLEMS AT THIS TIME. IV SITE RT FA DRESSING CLEAN DRY AND INTACT. NO SIGNS OF INFECTION. BOWEL SOUNDS ACTIVE. SCROTUM SWELLING PRESENT. RT UPPER LEG SCRATCH PLACED 4X4 AND TAPE. RT KNEE DRESSING CLEAN DRY AND INTACT. RT AND LT LOWER LEGS DRESSING CLEAN DRY AND INTACT. WILL CONTINUE PLAN OF CARE. CALL LIGHT IN REACH. BED LOWERED AND LOCKED. BED RAILS UP X2.
[2018-12-24 20:00] VITALS: BP 164/94
--- NOTE | 2018-12-24 21:00 | NUR ---
FSBS 179 2 UNITS OF INSULIN GIVEN PER SS.
--- NOTE | 2018-12-24 23:00 | NUR ---
RESTING IN BED NO S/S OF DISTRESS NO NEEDS NOTED RESPRATIONS EVEN AND UNLABORED CALL LIGHT IN REACH. CHECKED OFTEN FOR NEEDS AND SAFETY
[2018-12-25 04:00] VITALS: BP 173/74
--- NOTE | 2018-12-25 05:00 | NUR ---
EYES CLOSED RESPIRATIONS WITH EASE AND UNLABORED.
--- NOTE | 2018-12-25 06:22 | NUR ---
FSBS 126 NO COVERAGE NEEDED AT THIS TIME. PER SS.
--- NOTE | 2018-12-25 07:20 | NUR ---
PT ALERT AND ORIENTED. PT RESTING IN BED, EYES CLOSED. RESPIRATIONS EVEN AND UNLABORED. AROUSES TO VOICE. PT TAOIST. PT ONEIDA. PT ACHS. SCABS/SORES BILATERAL FEET/TOES. PT ON LOVENOX. TOE AMPUTATIONS TO RIGHT FOOT, 1 TOE AMPUTATION TO LEFT FOOT. BLE WOUNDS, DRESSINGS CDI. SMALL DRESSING TO RIGHT KNEE CAP AND SMALL DRESSING TO THIGH, DRESSINGS CDI. TESTICLES SWOLLEN. IV TO RIGHT FOREARM, NS INFUSING @ 10ML/HR, SITE PATENT WITHOUT REDNESS OR SWELLING. PT INCONTINENT OF BOWEL AND BLADDER. PT DENIES ANYTHING FURTHER AT THIS TIME. CALL LIGHT IN REACH. WILL CONTINUE TO MONITOR.
[2018-12-25 08:00] VITALS: BP 110/57
--- NOTE | 2018-12-25 10:46 | MORECARE ---
CASE MANAGEMENT DISCHARGE SUMMARY PATIENT: ALDEN CASTREJON UNIT: [id number] ADM DATE: 12/19/18 AGE: 68 : 51 SEX: M ROOM/BED: D.2236 AUTHOR: GRICELDA,DOC PHYSICIAN: REFERRING PHYSICIAN: CONNER ARRIOLA MD DATE OF SERVICE: 12/25/18 Discharge Plan Patient Name: ALDEN CASTREJON Facility: [facility]:[place] : 1950 Planned Disposition: Nursing Home Facility Anticipated Discharge Date: Discharge Date: Expected LOS: Initial Reviewer: [email or web address] Initial Review Date: 12/23/2018 Generated: 12/25/18 11:46 am Comments DCP- Discharge Planning Updated by [email or web address]: Katerin Philip on 12/25/18 9:[address] Daughter is in the room and asking about discharge plans. I spoke with Talia in inpatient rehab and they will accept him today if discharged. I called Dr. Arriola's office and informed them that he has been accepted to inpatient rehab if he is ready for discharge. Daughter is in agreement to inpatient rehab. CM will continue to follow and assist with discharge planning/needs. [facility] - [phone] DCP- Discharge Planning Updated by [id number]: Katerin Tamera on 12/24/18 2:[address] I spoke with patient about inpatient rehab, he is willing to participate in 3 hours of therapy a day. States he would like a referral sent to inpatient rehab, screen ordered. I spoke with José in inpatient rehab, she will notify Misha to work with the patient again today. CM will continue to follow and assist with discharge planning/needs. DCP- Discharge Planning Updated by [email or web address]: Katerin Tamera on 12/24/18 12:[address] I spoke with Angie Gonzales again about referral to [facility]. She states he only has one day of skilled days left at 100% paid. She states they may be able to take him for therapy if he is willing to stay at least 30 days and apply [place] [facility]. I spoke with the patient and also talked to him about LTACH for wound care. He [facility] and would prefer to go to [facility] for therapy and would be willing to stay at least 30 days for this. I informed Angie Gonzales. CM will continue to follow and assist with discharge planning/needs. DCP- Discharge Planning Updated by [id number]: Katerin Philip on 12/23/18 4:[address] Patient Name: ALDEN CASTREJON Admission Status: ER Accout number: [id number] Admission Date: 12-19-2018 : 1950 Admission Diagnosis: Attending: CONNER ARRIOLA Current LOS: 4 Anticipated DC Date: Planned Disposition: Nursing Home Facility Primary Insurance: MEDICARE A & B Discharge Planning Comments: CM met with patient to discuss discharge planning, he is alone in the room. States he lives with his 90 and 93 year old parents. States he ambulates with a walker or uses his electric wheelchair. States "lately, I have been unable to walk". States he would like a referral to [facility] SNF, states he has been there in the past. I notified Angie Gonzales with [facility] and clinical faxed. CM will continue to follow and assist with discharge planning/needs. Enamel Applier: Katerin Tamera DCPIA - Discharge Planning Initial Assessment Updated by [email or web address]: Katerin Philip on 12/23/18 5:11 pm * Is the patient Alert and Oriented? Yes * How many steps to enter\\exit or inside your home? Ramp/0 * PCP Dr. Arriola * Pharmacy [facility] on [address] * Preadmission Environment Home with Family * ADLs Partial Dependent * Partial ADLs (Assistance needed) Ambulation * Equipment Cane Power Chair or Electric Scooter Rolling Walker * Other Equipment Electric wheelchair * List name and contact numbers for known caregivers / representatives who currently or will assist patient after discharge: Stella Diaz - mother - [phone] Gen Castrejon - brother - [phone] * Verbal permission to speak to the caregivers and representatives has been obtained from the patient. Yes * Community resources currently utilized Home Health * Please name any agencies selected above. [facility] * Additional services required to return to the preadmission environment? Yes * Can the patient safely return to the preadmission environment? No * Has this patient been hospitalized within the prior 30 days at any hospital? No Last DP export: 2/19/19 2:14 p Patient Name: ALDEN CASTREJON Page [id number] at 1046 All edits/amendments must be made on the electronic document DICTATION DATE: 12/25/18 1045 CARPENTRY TEACHER: PRASHANTH 12/25/18 1045 RPT#: [id number] DC DATE: STATUS: ADM IN [facility] [address] [place] [address] END OF REPORT
--- NOTE | 2018-12-25 11:45 | NUR ---
TERMINAL SYSTEM OPERATOR NOTE- RFA PATENT, DRESSING INTACT AND SWAB CAPS IN USE. LOWER EXTREMITY LEG WOUNDS DRESSING INTACT AND CLEAN/DRY. PATIENT KEEPS REMOVING O2. PULSE OX IN THE HIGH 90'S. NO FURTHER NEEDS AT THIS TIME
[2018-12-25 12:00] VITALS: BP 169/81
[2018-12-25] MEDS ORDERED: DIFLUCAN100 MG PO (13:59)
[2018-12-25] MEDS ORDERED: LISINOPRIL10 MG PO (14:00)
[2018-12-25] MEDS ORDERED: NYSTATIN1 PWD TOPICAL (14:02)
[2018-12-25] MEDS ORDERED: CALMOSEPTINE OI71 GM TOPICAL (14:02)
[2018-12-25] MEDS ORDERED: SILVADENE20 GM TOPICAL (14:02)
[2018-12-25] MEDS ORDERED: OMNICEF300 MG PO (14:04)
[2018-12-25] MEDS ORDERED: LASIX40 MG PO (14:07)
--- NOTE | 2018-12-25 14:50 | MORECARE ---
CASE MANAGEMENT DISCHARGE SUMMARY PATIENT: ALDEN MARQUIS UNIT: [id number] ADM DATE: 12/19/18 AGE: 68 : 51 SEX: M ROOM/BED: D.2236 AUTHOR: GRICELDA,DOC PHYSICIAN: REFERRING PHYSICIAN: CONNER ARRIOLA MD DATE OF SERVICE: 12/25/18 Discharge Plan Patient Name: ALDEN MARQUIS Facility: [facility]:[place] : 1950 Planned Disposition: Correction Facility Anticipated Discharge Date: Discharge Date: Expected LOS: Initial Reviewer: [email or web address] Initial Review Date: 12/23/2018 Generated: 12/25/18 3:49 pm Comments DCP- Discharge Planning Updated by [id number]: Katerin Tamera on 12/25/18 1:[address] Received order for discharge. He is going to be discharged to inpatient rehab, room 1118B. I informed the patient and his daughter (Yuni). They are in agreement to discharge. I informed Angie Gonzales from [facility] and she will follow up with the patient on Rehab. DCP- Discharge Planning Updated by [id number]: Katerin Philip on 12/25/18 9:[address] Daughter is in the room and asking about discharge plans. I spoke with Talia in inpatient rehab and they will accept him today if discharged. I called Dr. Arriola's office and informed them that he has been accepted to inpatient rehab if he is ready for discharge. Daughter is in agreement to inpatient rehab. CM will continue to follow and assist with discharge planning/needs. Yuni - DTR - [phone] DCP- Discharge Planning Updated by [id number]: Katerin Philip on 12/24/18 2:[address] I spoke with patient about inpatient rehab, he is willing to participate in 3 hours of therapy a day. States he would like a referral sent to inpatient rehab, screen ordered. I spoke with José in inpatient rehab, she will notify Misha to work with the patient again today. CM will continue to follow and assist with discharge planning/needs. DCP- Discharge Planning Updated by [email or web address]: Katerin Philip on 12/24/18 12:[address] I spoke with Angie Stovallaft again about referral to [facility]. She states he only has one day of skilled days left at 100% paid. She states they may be able to take him for therapy if he is willing to stay at least 30 days and apply for assisted. I spoke with the patient and also talked to him about LTACH for wound care. He states he has been at [facility]ACH before and would prefer to go to [facility] for therapy and would be willing to stay at least 30 days for this. I informed Angie Christian. CM will continue to follow and assist with discharge planning/needs. DCP- Discharge Planning Updated by [email or web address]: Katerin Mejiaaltagracia on 12/23/18 4:[address] Patient Name: ALDEN MARQUIS Admission Status: ER Accout number: [id number] Admission Date: 12-19-2018 : 1950 Admission Diagnosis: Attending: CONNER ARRIOLA Current LOS: 4 Anticipated DC Date: Planned Disposition: [facility] Facility Primary Insurance: MEDICARE A & B Discharge Planning Comments: CM met with patient to discuss discharge planning, he is alone in the room. States he lives with his 90 and 93 year old parents. States he ambulates with a walker or uses his electric wheelchair. States "lately, I have been unable to walk". States he would like a referral to [facility] SNF, states he has been there in the past. I notified Angie Gonzales with [facility] and clinical faxed. CM will continue to follow and assist with discharge planning/needs. Manager Grant: Katerin Tamera DCPIA - Discharge Planning Initial Assessment Updated by [id number]: Katerin Mejiaaltagracia on 12/23/18 5:11 pm * Is the patient Alert and Oriented? Yes * How many steps to enter\\exit or inside your home? Ramp/0 * PCP Dr. Arriola * Pharmacy [facility] [address] * Preadmission Environment Home with Family * ADLs Partial Dependent * Partial ADLs (Assistance needed) Ambulation * Equipment Cane Power Chair or Electric Scooter Rolling Walker * Other Equipment Electric wheelchair * List name and contact numbers for known caregivers / representatives who currently or will assist patient after discharge: Stella Diaz - mother - [phone] Gen molina - [phone] * Verbal permission to speak to the caregivers and representatives has been obtained from the patient. Yes * Community resources currently utilized Home Health * Please name any agencies selected above. [facility] * Additional services required to return to the preadmission environment? Yes * Can the patient safely return to the preadmission environment? No * Has this patient been hospitalized within the prior 30 days at any hospital? No Coverage Notice Reviewer: [email or web address] Natalie Philip Notice Issued Date-Time: 12/25/2018 14:40 Notice Type: IM Discharge Notice Notice Delivered To: Patient Relationship to Patient: Self Underwriting Clerk Name: Delivery Method: HAND - Hand Delivered Chela Days: Prior Verbal Notification: Recipient Understood Notice: Yes Recipient Signature: Yes Med Rec Note Co-signed by Attending: Coverage Notice Comment: IMM explained, signed, given, copy placed in MR Last DP export: 12/25/18 9:46 a Patient Name: ALDEN MARQUIS Page [id number] at 1450 All edits/amendments must be made on the electronic document DICTATION DATE: 12/25/18 1449 FRANCHISE SPECIALIST: PRASHANTH 12/25/18 1449 RPT#: [id number] DC DATE: STATUS: ADM IN [facility] [address] [place] [address] END OF REPORT
--- NOTE | 2018-12-25 17:36 | NUR ---
PT DISCHARGED TO IN PATIENT REHAB. REPORT CALLED INTO REHAB. NO C/O PAIN. NO S/S OF ACUTE DISTRESS. WENT OVER DISCHARGED INSTRUCTIONS WITH PT, PT ACKNOWLEDGED. DISCONTINUED IV, CATHETER TIP INTACT. PT DENIES ANY CONCERNS AT THIS TIME.
--- NOTE | 2018-12-26 08:31 | MORECARE ---
CASE MANAGEMENT DISCHARGE SUMMARY PATIENT: ALDEN CASTREJON UNIT: [id number] ADM DATE: 12/19/18 AGE: 68 : 51 SEX: M ROOM/BED: D.2236 AUTHOR: GRICELDA,DOC PHYSICIAN: REFERRING PHYSICIAN: CONNER ARRIOLA MD DATE OF SERVICE: 12/26/18 Discharge Plan Patient Name: ALDEN CASTREJON Facility: [facility]:[place] : 1950 Planned Disposition: Intermediate Facility Anticipated Discharge Date: Discharge Date: 12/25/2018 Expected LOS: 0 Initial Reviewer: [id number] Initial Review Date: 12/23/2018 Generated: 12/26/18 9:31 am Comments DCP- Discharge Planning Updated by [email or web address]: Katerin Philip on 12/25/18 1:[address] Received order for discharge. He is going to be discharged to inpatient rehab, room 1118B. I informed the patient and his daughter (Yuni). They are in agreement to discharge. I informed Angie Elainecraft from [facility] and she will follow up with the patient on Rehab. DCP- Discharge Planning Updated by [email or web address]: Katerin Philip on 12/25/18 9:[address] Daughter is in the room and asking about discharge plans. I spoke with Talia in inpatient rehab and they will accept him today if discharged. I called Dr. Arriola's office and informed them that he has been accepted to inpatient rehab if he is ready for discharge. Daughter is in agreement to inpatient rehab. CM will continue to follow and assist with discharge planning/needs. Yuni - DTR - [phone] DCP- Discharge Planning Updated by [email or web address]: Katerin Philip on 12/24/18 2:[address] I spoke with patient about inpatient rehab, he is willing to participate in 3 hours of therapy a day. States he would like a referral sent to inpatient rehab, screen ordered. I spoke with José in inpatient rehab, she will notify Misha to work with the patient again today. CM will continue to follow and assist with discharge planning/needs. DCP- Discharge Planning Updated by [id number]: Katerin Philip on 12/24/18 12:[address] I spoke with Angie Gonzales again about referral to [facility]. She states he only has one day of skilled days left at 100% paid. She states they may be able to take him for therapy if he is willing to stay at least 30 days and apply for senior care. I spoke with the patient and also talked to him about [facility] for wound care. He states he has been at [facility]ACH before and would prefer to go to [facility] for therapy and would be willing to stay at least 30 days for this. I informed Angie Christian. CM will continue to follow and assist with discharge planning/needs. DCP- Discharge Planning Updated by [id number]: Katerin Philip on 12/23/18 4:[address] Patient Name: ALDEN CASTREJON Admission Status: ER Accout number: [id number] Admission Date: 12-19-2018 : 1950 Admission Diagnosis: Attending: CONNER ARRIOLA Current LOS: 4 Anticipated DC Date: Planned Disposition: Intermediate Facility Primary Insurance: MEDICARE A & B Discharge Planning Comments: CM met with patient to discuss discharge planning, he is alone in the room. States he lives with his 90 and 93 year old parents. States he ambulates with a walker or uses his electric wheelchair. States "lately, I have been unable to walk". States he would like a referral to [facility] SNF, states he has been there in the past. I notified Angie Stovallaft with [facility] and clinical faxed. CM will continue to follow and assist with discharge planning/needs. Pesticide Applicator: Katerin Mejiaaltagracia DCPIA - Discharge Planning Initial Assessment Updated by [email or web address]: Katerin Mejiaaltagracia on 12/23/18 5:11 pm * Is the patient Alert and Oriented? Yes * How many steps to enter\\exit or inside your home? Ramp/0 * PCP Dr. Arriola * Pharmacy [facility] [address] * Preadmission Environment Home with Family * ADLs Partial Dependent * Partial ADLs (Assistance needed) Ambulation * Equipment Cane Power Chair or Electric Scooter Rolling Walker * Other Equipment Electric wheelchair * List name and contact numbers for known caregivers / representatives who currently or will assist patient after discharge: Stella Diaz - mother - [phone] Gen Castrejon - brother - [phone] * Verbal permission to speak to the caregivers and representatives has been obtained from the patient. Yes * Community resources currently utilized Home Health * Please name any agencies selected above. [facility] * Additional services required to return to the preadmission environment? Yes * Can the patient safely return to the preadmission environment? No * Has this patient been hospitalized within the prior 30 days at any hospital? No Coverage Notice Reviewer: [id number] Natalie Philip Notice Issued Date-Time: 12/25/2018 14:40 Notice Type: IM Discharge Notice Notice Delivered To: Patient Relationship to Patient: Self Body Finisher Name: Delivery Method: HAND - Hand Delivered Chela Days: Prior Verbal Notification: Recipient Understood Notice: Yes Recipient Signature: Yes Med Rec Note Co-signed by Attending: Coverage Notice Comment: IMM explained, signed, given, copy placed in MR Last DP export: 12/25/18 1:49 p Patient Name: ALDEN CASTREJON Page [phone] at 0831 All edits/amendments must be made on the electronic document DICTATION DATE: 12/26/1831 REGIONAL HR MANAGER: PRASHANTH 12/26/18 0831 RPT#: [id number] DC DATE:12/25/18 STATUS: DIS IN [facility] [address] [place] [address] END OF REPORT
== END 2018-12-25 17:40 | DRG 291 ==
LOC: D.ER 17:08 → D.MS 19:04 → D.EDHOLD 19:04 → D.MS 20:17
PROVIDERS: Family Medicine; Internal Medicine Hematology & Oncology; ADMIT Family Medicine
DX: I11.0 Hypertensive heart disease with heart failure (principal); J18.9 Pneumonia, unspecified organism; N17.9 Acute kidney failure, unspecified; B37.0 Candidal stomatitis; E11.65 Type 2 diabetes mellitus with hyperglycemia; I50.9 Heart failure, unspecified; D64.9 Anemia, unspecified

== ENCOUNTER 2018-12-25 14:41 | Inpatient (IN) | payer MEDICARE ==
[~2018-12-25] VITALS: Ht 188 cm; Wt 103.9 kg
[~2018-12-25 14:41] MED LIST changes: +ASPIRIN325 MG PO; +CALMOSEPTINE OI71 GM TOPICAL; +LASIX40 MG PO; +LISINOPRIL10 MG PO; +NYSTATIN1 PWD TOPICAL; +OMNICEF300 MG PO; +SILVADENE20 GM TOPICAL
--- NOTE | 2018-12-25 17:30 | NUR ---
recieved pt/wc from acute to room 1118b.oriented to room and surroundings.cl in reach.
--- NOTE | 2018-12-25 20:36 | NUR ---
NEW ADMIT PT ASLEEP DINNER TRAY ON TABLE WATER NEEDED, CALL LIGHT WITHIN REACH
--- NOTE | 2018-12-25 22:02 | NUR ---
COMPLETE BED CHANGE SPILLED URINE FROM URINAL. RIGHT AFTER 1ST BED CHANGE HAD BM LOOSE ALMOST DIARRHETIC COMPLETE BED CHANGE 2ND , AFTER BED CHANGE 2ND BM SO ANOTHER COMPLETE CLEAN UP AND BED CHANGE. MEDS GIVEN, FLUIDS AND CALL LIGHT WITHIN REACH.
[2018-12-26 00:37] VITALS: BP 162/81; BMI 29.4
--- NOTE | 2018-12-26 06:26 | NUR ---
DRSGS CHANGED TO BLE WOUND CLEANSER PATTED DRY, SILVADENE GAUZE KERLIX AND STEW WRAP TO RT FOOT/DURAN ADAPTIC OVER WOUND BED RED W/WHITE EXUDATE. LFT LATERAL FOOT SCABBED OVER, WOUND CLEANSER USED,PATTED DRY, SILVADENE WRAPPED W/KERLIX AND STEW WRAP. UPPER LFT ARM SKIN TEAR CLEANSED,PAT DRY, MEPILEX. RT MID THIGH SKIN SHEAR, CLEANSED PATTED DRY,ADAPTIC GAUZE TAPED ALL SIGNED AND DATED
[2018-12-26 07:31] VITALS: BP 142/69
[2018-12-26 13:51] VITALS: Ht 188 cm; Wt 103.9 kg
--- NOTE | 2018-12-26 20:09 | NUR ---
PT ASLEEP WHEN ARRIVED ON UNIT, TOOK MENU AND LEFT ON TABLE TO BE FILLED OUT LATER, FLUIDS AND CALL LIGHT WITHIN REACH
[2018-12-26 20:45] VITALS: BP 192/94
--- NOTE | 2018-12-26 23:41 | NUR ---
PTS BLE DRSGS HAD COME OFF, WOUNDS CLEANED, SILVADENE APPLIED CLEAN/DRY/NON-ADHESIVE PAD AND KERLIX APPLIED, RT FOOT WOUND BEEFY RED, W/SOME WHITE EXUDATE, REPEATED DRSG CHANGE TO LFT FOOT WOUND, RT THIGH DRSG CLEANED AND CHANGED, PILLOW TUCKED UNDER RT HIP TO RELIEVE SOME PRESSURE OFF BACK/BUTTOCK/COCCYX, SCROTUM/PENIS EXTREMELY SWOLLEN, GROIN ESPECIALLY THE LFT SIDE EXCORIATED AND BLEEDING DUE TO SCRATCHING. UPPER RT THIGH DRSG CLEANED AND CHANGED FLUIDS AND CALL LIGHT WITHIN REACH
[2018-12-27 06:44] LABS: HEMATOCRIT 21.2 % (42.0-54.0); LYMPHOCYTES 11.6 % (15-50); MCH 27.4 pg (26.0-34.0); MCHC 32.5 g/dL (31.0-37.0); MCV 84.1 fL (80.0-100.0); MEAN PLATELET VOLUME 8.3 fL (7.4-10.4); NEUTROPHILS 71.6 % (40-80); PLATELET COUNT 226 10x3/uL (130-400); RBC 2.52 10x6/uL (4.20-6.10); RDW 16.5 % (11.5-14.5); WBC 6.2 10x3/uL (4.8-10.8)
[2018-12-27 06:46] LABS: ANION GAP 16.3 mmol/L (8-16); CALCIUM 7.7 mg/dL (8.5-10.1); CARBON DIOXIDE 20.3 mmol/L (21.0-32.0); CREATININE - SERUM 3.2 mg/dL (0.6-1.3); HEMOGLOBIN 6.9 g/dL (13.5-17.5); POTASSIUM - SERUM 3.6 mmol/L (3.5-5.1)
--- NOTE | 2018-12-27 07:41 | NUR ---
LAYING IN BED QUIETLY, EYES CLOSED. OXYGEN ALMOST IN NOSE. RESP NON LABORED. CALL LIGHT IN REACH
[2018-12-27 08:00] VITALS: BP 151/75
--- NOTE | 2018-12-27 10:19 | NUR ---
INCONT AGAIN OF STOOL, MAX ASST TO CLEAN HIM UP. JAN AREA RED AND RAW, BACK OF LEGS RED AND RAW BUT WILL MITCHELL.
--- NOTE | 2018-12-27 14:56 | NUR ---
STILL HAVING DIARRHEA. IS WORSE AFTER HE EATS. DR MAGANA STARTED HIM ON NEW ANTIDIARRHEL MED TODAY. SO FAR NO RESULTS. HIS BOTTOM AND BACK OF HIS LEGS ARE RED. HIS SCROTOM IS STILL VERY EDEMATOUS ALONG WITH HIS PENIS. DSG TO VARIOUS PLACES ON HIM STILL IN PLACE. MAX ASST TO TRANSFER. APPETITE GOOD. STILL WEARING 2L NC.
--- NOTE | 2018-12-27 15:01 | NUR ---
THERAPY HELPED PUT PT BACK TO BED. HE IS MAX ASST TO TRANSFER.
--- NOTE | 2018-12-27 16:29 | NUR ---
PATIENT ADMITTED TO REHAB FROM ACUTE FLOOR. HE LIVES WITH HIS ELDERLY PARENTS. DME AT HOME IS A WALKER , CANE AND A ELECTRIC WHEELCHAIR. HIS PCP IS DR. RUIZ. WILL CONTINUE TO FOLLOW WITH PATIENT.
--- NOTE | 2018-12-27 19:27 | NUR ---
PT IS RESTING QUIETLY IN BED WITH EYES CLOSED. RESPS ARE EVEN AND UNLABORED. NO ACUTE DISTRESS NOTED.
--- NOTE | 2018-12-27 20:56 | NUR ---
THE PATIENT IS RESTING COMFORTABLY WITH THE BED IN THE LOW POSITION, SIDERAILS X2 AND CALL LIGHT WITHIN REACH.
[2018-12-27 21:00] VITALS: BP 169/82
--- NOTE | 2018-12-28 00:03 | NUR ---
PT VOICED COMPLAINT OF SOB. PULSE OX IS 84 PERCENT ON 2 LITERS OF O2. TURNED UP TO 3 LPM WITH NO CHANGE. 3.5 WITH NO CHANGE, AND THEN 4LPM WITH NO CHANGE. RESP. THERAPY CALLED TO COME CHECK PATIENT.
--- NOTE | 2018-12-28 00:21 | NUR ---
RESP. THERAPY RAISED O2 TO 5LPM, AND O2 LEVEL CAME UP TO 91 PERCENT. SHE IS GOING TO PLACE PT ON A HIGH FLOW MASK AT THIS TIME.
--- NOTE | 2018-12-28 02:18 | NUR ---
PT FOUND LYING IN BED ON LEFT SIDE WITH NO PULSE OR RESPIRATION. I ATTEMPTED TO CALL HORACE SALAZAR IN ROOM. PHONE WAS NOT WORKING. I STEPPED INTO THE HARPER AND YELLED HORACE SALAZAR TO MACRINA NIELSEN ON DUTY. I PULLED THE FOOTBOARD OFF OF THE BED AND PLACED IT UNDER PT, AND STARTED CPR. THE CRASH CART THEN ARRIVED WITH STAFF MEMBERS, AND AMBU BAG USED TO VENTILATE PT., FOLLOWED CLOSELY BY RESPIRATORY THERAPY AND ICU TEAM, AND THEN DR PARK FROM THE ER.
--- NOTE | 2018-12-28 02:22 | NUR ---
IV STARTED BY ICU NURSE IN LEFT AC, AND FLUIDS STARTED ON PT IMMEDIATELY AFTER. 0225. PT GIVEN FIRST DOSE OF EPI. DR PARK ASKED ME TO CALL FAMILY AND NOTIFY THEM OF WHAT WAS HAPPENING. I CALLED PTS BROTHER, AND NOTIFIED HIM OF THE SITUATION AND WHAT WAS HAPPENING AT THIS TIME.
--- NOTE | 2018-12-28 02:29 | NUR ---
DR PARK ON PHONE WITH PTS BROTHER TO INFORM HIM OF THE SITUATION. AFTERWARDS WHEN WE REENTERED THE ROOM, WE WERE INFORMED THAT PT HAD A PULSE. RESPIRATORY WAS STILL BAGGING PT. STRONG FEMORAL PULSE FOUND WITH DOPPLER. 0232. SECOND DOSE OF EPI GIVEN. 0235. BP 275/115. PULSE OF 113. PUPILS ARE FIXED AND DIALATED. 0242 BP IS 223/120 PULSE IS 99.
--- NOTE | 2018-12-28 02:51 | NUR ---
PT DEPARTED UNIT VIA BED FOR ICU ROOM 7. AMBU BAG USED FOR TRANSFORT. REPORT GIVEN TO ICU NURSE, AND I RETURNED TO REHAB.
--- NOTE | 2018-12-28 04:00 | NUR ---
ICU CALLED TO TELL FAMILY THAT PTS BELONGINGS WERE PACKED IF THEY WANTED TO COME PICK THEM UP.
--- NOTE | 2019-01-01 10:28 | RHP ---
PATIENT: ALDEN MARQUIS MEDICAL RECORD: [id number] ACCOUNT: [id number] LOCATION:[facility]1118 : [birth year] ADMISSION DATE: 12/25/18 REHABILITATION HISTORY AND PHYSICAL EXAMINATION POST ADMISSION PHYSICIAN EXAMINATION POST ADMISSION PHYSICAL EXAMINATION AND HISTORY AND PHYSICAL DATE OF ADMISSION: 12/25/2018 ADMITTING DIAGNOSIS: CHF-induced myopathy. HISTORY OF PRESENT ILLNESS: The patient is a 68-year-old gentleman admitted to the rehab with a working diagnosis of CHF myopathy. He was admitted to the [facility] hospital through the ED after presenting with bilateral lower extremity edema and shortness of breath over the previous month. He was admitted with severe anemia, pneumonia, CHF exacerbation. He has got a history of neuropathy, physical disability, gastroesophageal reflux disease, CHF, edema, chronic back pain, chronic venous stasis ulcers, and he has had MRSA in his leg before and chronic anemia. He is a Christianity and refuses any type of blood products. He has been noncompliant with his meds, his care, and his therapy in the past. He was found to have a proBNP of 23,517 on 12/19. His chest x-ray was consistent with congestive heart failure and bilateral pleural effusions. The patient has been placed on diuretic therapy and antibiotic therapy. He has been seen by wound care and treated for his lower extremities in the past. He was started on Diflucan for perineal area yeast. 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 He is currently on 3 liters of supplemental O2. Desats at times to 88%. He has no home oxygen set up at this time. He has got bilateral pleural effusions, proximal muscle weakness, deconditioning, debility. He is receiving wound care. He has some incontinence at times. He has chronic anemia, self-care deficit. These are all barriers to his discharge safely at this time. He lives at home with his 90-year-old parents. 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 Uses a rolling walker and electric wheelchair at times. He is moderately independent to independent with his ADLs and mobility. He is currently set up max assist for ADLs, max assist to total assist for mobility. He and his family plan for him to return home after his inpatient stay. Comorbidities include CHF, pneumonia, anemia, acute kidney injury, physical debility, hypertension, neuropathy, chronic low back pain, iron-deficient anemia, and candidiasis. PAST MEDICAL HISTORY: Significant for neuropathy, weakness, cataracts, diabetes, chronic anemia, CHF, edema, acid reflux, chronic back pain, shoulder pain, MRSA, lower extremity sores. PAST SURGICAL HISTORY: Includes an I&D of his left knee, an I&D of his knees in the past, and amputation of a couple of his toes. ALLERGIES: No known drug allergies. CURRENT MEDICATIONS: Include lisinopril 20 mg daily, Floranex 460 mg daily, furosemide 40 mg daily, Diflucan 100 mg daily for 5 doses, atorvastatin 40 mg daily. He is on a glucose replacement protocol. He is on a low-resistant sliding scale with Humulin R. He is on Silvadene as needed. Nystatin to apply t.i.d. p.r.n. He is on Niferex 1 cap b.i.d. and Omnicef 300 mg b.i.d. HISTORY AND PHYSICAL [id number] ALDEN MARQUIS HABITS: No alcohol or tobacco use. FAMILY HISTORY: Noncontributory. SOCIAL HISTORY: The patient hopes to return back home and get back to his prior level of functioning. REVIEW OF SYSTEMS: GENERAL: Does complain of some weakness and fatigue. HEENT: Denies cold, cough, or congestion. CARDIOVASCULAR: Denies chest pain. PHYSICAL EXAMINATION: VITAL SIGNS: Stable, afebrile. GENERAL: An obese gentleman, in no acute distress upon exam. HEENT: Normocephalic and atraumatic. Mucosa moist. NECK: Supple. No lymphadenopathy. LUNGS: Clear at this time. HEART: Regular rate and rhythm. ABDOMEN: Benign. EXTREMITIES: No clubbing. No cyanosis. Does have changes consistent with previous venous stasis with discoloration of the skin and ulcerative type changes. NEUROLOGIC: He does have noted proximal muscle weakness. LABORATORY DATA: Admit labs just showing elevated glucose. ASSESSMENT: This is a 68-year-old gentleman admitted to the rehab with a working diagnosis of CHF-induced myopathy. The patient has potential to make improvement. We will institute the following multidisciplinary therapies including, not limited to physical, occupational, respiratory, speech, nutritional services, prosthetics and orthotics. Given his complex medical condition and risks for more complications, rehabilitation services cannot be provided at a low level of care such as a correction facility. PLAN: 1. Admit to [facility] for intensive inpatient therapy to include the following disciplines: A. Physical therapy to improve gait, all transfer skills and bed mobility to a modified independent level. B. Occupational therapy to improve activities of daily living to a modified independent level. C. Case management to assist with discharge planning and placement options. D. Nutrition to assist with nutritional needs. E. Rehabilitation nursing to assist in monitoring the patient's underlying medical condition and to assist with any type of bowel or bladder management. 2. The patient's current medications and medical care will be continued. 3. The patient will be placed on standard fall precautions. 4. The patient's estimated length of stay is approximately 7-10 days. 5. We will discuss this patient during care team staff meeting this week. We will continue with wound care as needed. I am going to follow up in the a.m. TRANSINT:[id number] Voice Confirmation ID: [id number] DOCUMENT ID: [id number] HISTORY AND PHYSICAL [id number] ALDEN MARQUIS notes whether there has been none or any medical/functional change since admission: - No change since preadmission screen. GARRY attests patient continues to be appropriate for IRF: - Continues to be appropriate. KANDIS MAGANA MD at 1028 CC: [id number] DICTATION DATE: 12/26/18906 GAS METER INSTALLER HELPER: 12/26/18 0928 DIS IN 12/28/18 [place] [id number]
== END 2018-12-28 02:52 | disposition short-term general hospital (02) | DRG 91 ==
LOC: D.REHAB 14:41
PROVIDERS: ADMIT Emergency Medicine
PROC: 5A1935Z Respiratory Ventilation, Less than 24 Consecutive Hours (ICD-10-PCS; principal; 2018-12-28)
PROC: 0BH17EZ Insertion of Endotracheal Airway into Trachea, Via Natural or Artificial Opening (ICD-10-PCS; 2018-12-28)
DX: G72.89 Other specified myopathies (principal); J18.9 Pneumonia, unspecified organism; I46.9 Cardiac arrest, cause unspecified; N17.9 Acute kidney failure, unspecified; E11.65 Type 2 diabetes mellitus with hyperglycemia; I50.9 Heart failure, unspecified; D64.9 Anemia, unspecified; R53.81 Other malaise; I10 Essential (primary) hypertension; E11.40 Type 2 diabetes mellitus with diabetic neuropathy, unspecified; D50.9 Iron deficiency anemia, unspecified; B37.9 Candidiasis, unspecified; G89.29 Other chronic pain

== ENCOUNTER 2018-12-28 02:55 | Inpatient (IN) | payer MEDICARE ==
[2018-12-28] VITALS (13 sets, daily range): BP systolic 85–194; BP diastolic 49–106; Ht 188 cm
[~2018-12-28] VITALS: Ht 188 cm
--- NOTE | 2018-12-28 02:40 | NUR ---
PT ARRIVED ON UNIT VIA HOSPITAL BED ACCOMPANIED BY REHAB STAFF. PT FAMILY IN WAITING ROOM. PT ON VENTILATOR NO SEDATION AT THIS TIME. ADMISSION ASSESSMENT COMPLETED SEE FLOWSHEET . CPOC
--- NOTE | 2018-12-28 03:51 | NUR ---
SPOKE WITH PRIMARY DR. RUIZ, ORDERS RECEIVED TO CONSULT PULMONOLOGY
--- NOTE | 2018-12-28 05:00 | NUR ---
MEDICAL TEAM IS AWARE OF CRITICAL HEMOGLOBIN AND HEMATOCRIT - PATIENT IS JEHOVAHS WITNESS - CPOC
[2018-12-28 05:54] LABS: ALBUMIN 1.6 g/dL (3.4-5.0); ANION GAP 19.2 mmol/L (8-16); BILIRUBIN - TOTAL 0.27 mg/dL (0.2-1.3); CALCIUM 7.4 mg/dL (8.5-10.1); CARBON DIOXIDE 16.8 mmol/L (21.0-32.0); CREATININE - SERUM 3.3 mg/dL (0.6-1.3); PROTEIN - SERUM 5.7 g/dL (6.4-8.2)
[2018-12-28 06:04] LABS: WBC 21.9 10x3/uL (4.8-10.8)
[2018-12-28 06:05] LABS: HEMATOCRIT 21.9 % (42.0-54.0); HEMOGLOBIN 6.9 g/dL (13.5-17.5); MCH 26.5 pg (26.0-34.0); MCHC 31.5 g/dL (31.0-37.0); MCV 84.2 fL (80.0-100.0); MEAN PLATELET VOLUME 8.8 fL (7.4-10.4); PLATELET COUNT 223 10x3/uL (130-400); RDW 16.9 % (11.5-14.5)
--- NOTE | 2018-12-28 07:04 | NUR ---
DURING AM ASSESSMENT NO MOEVMENTS NOTED EXCEPT TONGUE PUSHING MOTION DURING DEEP STIMULATION.
[2018-12-28 08:17] LABS: EOSINOPHILS 2 % (0-7); LYMPHOCYTES 9 % (15-50); MONOCYTES 3 % (2-11); NEUTROPHILS 83 % (40-80); PLATELET ESTIMATE NORMAL
--- NOTE | 2018-12-28 08:27 | NUR ---
SPOKE WITH DR RUIZ REGARDING HTN WITH SBP UP TO 187. ORDERS RECIEVED.
--- NOTE | 2018-12-28 08:50 | NUR ---
PER DR RICK, HOLD HYDRALAZINE FOR NOW.
--- NOTE | 2018-12-28 09:03 | NUR ---
SLIGHT MOVEMENT TO LT LEG AND ARM AND RT HAND DURING ABG DRAW NOTED. PT NOT FOLLOWING COMMANDS. TURNED Q2H. WILL CONTINUE PLAN OF CARE.
--- NOTE | 2018-12-28 09:12 | NUR ---
JERK LIKE MOVEMENTS TO GENERALIZED AREA WHICH ALSO INVOLVES EYES TO OPEN THEN CLOSE AFTER END OF MOMENT. JERK LIKE MOVEMENTS LAST AT MAX A SECOND AT A TIME. PHYSICIANS NOTIFIED, CT HEAD HAS BEEN ORDERED. FAMILY AT [facility], NOTIFIED. WILL CONTINUE PLAN OF CARE.
[2018-12-28 09:41] LABS: INR 1.22 (0.85-1.17); PROTIME 14.8 SECONDS (11.6-15.0)
--- NOTE | 2018-12-28 10:39 | NUR ---
VENT RATE INCREASED TO [address] RICK
--- NOTE | 2018-12-28 11:30 | NUR ---
PT NOTED TO CONTINUE TO HAVE JERK LIKE MOVEMENTS, PHYSICIANS ARE AWARE. FAMILY HAVE REQUESTED TO SPEAK WITH PHYSICIANS. MEETING SCHEDULED TO BE IN 1 HOUR TO DISCUSS PLAN OF CARE. WILL CONTINUE PLAN OF CARE.
--- NOTE | 2018-12-28 12:25 | NUR ---
FAMILY MEETING OCCURED WITH PTS FAMILY INCLUDING CHILDREN AND PTS BROTHER. FAMILY HAVE DECIDED TO MAKE PT DNR AND STATE THEY WISH FOR A LITTLE MORE TIME BEFORE DECIDING ON POSSIBLE COMFORT MEASURE ONLY WITH TERMINAL EXTUBATION.
--- NOTE | 2018-12-28 12:43 | NUR ---
FAMILY HAVEN SPOKEN WITH DR RUIZ, DECIDED ON TERMINAL EXTUBATION.
--- NOTE | 2018-12-28 12:52 | NUR ---
PER DR RICK PLACE ORDERS FOR TEMINAL EXTUBATION, STOP ALL LAB DRAWS, STOP DIPROVAN, AND STOP ANTIBIOTICS. FAMILY AT BEDSIDE. ALL QUESTIONS AND CONCERNS ADDRESSED BY NURSE AND PHYSICIANS. WILL CONTNIUE PLAN OF CARE.
--- NOTE | 2018-12-28 14:28 | NUR ---
PT NOW ASYSTOLE PER TELEMETRY. FAMILY AT BEDSIDE. NO RESPIRATIONS, NO PULSE. DR RUIZ PAGEYolis TO NOTIFY, STATED TO CALL DR RICK TO HAVE COME PRONOUNCE PT SINCE DR RICK IS STILL IN HOSPITAL. DR RICK PAGED.
--- NOTE | 2018-12-28 14:35 | NUR ---
DR RICK CALLED BACK AND STATED HE WILL NOT PRONOUNCE ANYONE. DR RUIZ PAGED BACK TO NOTIFY FOR FURTHER ORDERS. ALSO PTS FAMILY CONFIRMED HOME TO BE DUAL AND LEAL HOME IN [place].
--- NOTE | 2018-12-28 14:57 | NUR ---
SPOKE WITH DR RUIZ REGARDING WHO WAS TO PRONOUNCE PT, HE STATED HE WOULD BE BY IN A LITTLE BIT TO PRONOUNCE PT.
--- NOTE | 2018-12-28 15:51 | NUR ---
NOTIFIED [facility] OFFICE. WAITING FOR CALLBACK.
--- NOTE | 2018-12-28 16:06 | NUR ---
SPOKE WITH KANDIS AT [facility] OFFICE, STATED OKAY TO RELEASE BODY TO HOME.
--- NOTE | 2018-12-28 16:13 | NUR ---
CALLED TONYA, SPOKE WITH PETE AT [facility] ANSWERING SERVICE. STATED WILL HAVE THEM CALL BACK SHORTLY.
--- NOTE | 2018-12-28 16:14 | NUR ---
PER BRAD CASTANEDA, STATED PT IS RULED OUT FOR [facility]. REFERRAL NUMBER IS [phone].
--- NOTE | 2018-12-28 16:25 | NUR ---
CALLED HOME OF PTS FAMILY CHOICE, DIAL AND [facility]EL HOME TO COME GENERAL HANDLING SUPERVISOR BODY. STATED WOULD BE BY TO GENERAL HANDLING SUPERVISOR BODY. SPOKE WITH FARAZ.
--- NOTE | 2018-12-28 16:55 | NUR ---
POSTMORTUM CARE PROVIDED AT THIS TIME, MANZANO DC, SALINE LOCK TO LT UPPER ARM DC. CATHETER TIP INTACT.
--- NOTE | 2018-12-28 18:02 | NUR ---
BODY HAS BEEN PICKED UP BY HOME BY ANA FRANCOIS. ALL PERSONAL ITMES HAE BEEN TAKEN HOME WITH FAMILY. NO FURTHER ACTIONS.
== END 2018-12-28 18:02 | DRG 871 ==
LOC: D.ICU 02:55
PROVIDERS: Internal Medicine Pulmonary Disease; ADMIT Family Medicine; ATTEND Family Medicine
PROC: 5A1935Z Respiratory Ventilation, Less than 24 Consecutive Hours (ICD-10-PCS; principal; 2018-12-28)
DX: A41.9 Sepsis, unspecified organism (principal); J96.00 Acute respiratory failure, unspecified whether with hypoxia or hypercapnia; G93.41 Metabolic encephalopathy; J18.9 Pneumonia, unspecified organism; N17.9 Acute kidney failure, unspecified; G93.1 Anoxic brain damage, not elsewhere classified; I46.9 Cardiac arrest, cause unspecified; D72.829 Elevated white blood cell count, unspecified; D50.0 Iron deficiency anemia secondary to blood loss (chronic); K21.9 Gastro-esophageal reflux disease without esophagitis; E11.65 Type 2 diabetes mellitus with hyperglycemia; Z66 Do not resuscitate; R53.81 Other malaise